=== PATIENT | female | born 1945 | race Caucasian/White ===

== ENCOUNTER 2017-01-02 15:06 | Inpatient (IN) | payer OTHER ==
[~2017-01-02] VITALS: Ht 160 cm; Wt 69.9 kg
[~2017-01-02 15:06] MED LIST: ALBU1AER9 INH; ASPI325T45 PO; CITA10TA4 PO; DIGO0.122 PO; HYDR-4079 PO; LORA-741 PO; METO-157 PO; ONDA8TAB12 PO; TRIA0.1C20 TD; ZNTT/150 PO
[2017-01-02 15:52] LABS: BASO % 0.3 %; BASO ABS # 0.02 K/uL (0-0.2); COMPLETE YES; EOS % 8.9 %; HEMATOCRIT 36.2 % (37-47); IG% 0.1 %; LYMPH % 25.4 %; LYMPH ABS # 1.86 K/uL (1.2-3.4); MEAN CELL VOLUME 91.9 fL (80-100); MEAN CORPUSCULAR HEMOGLOBIN 29.9 pg (25-34); MEAN CORPUSCULAR HGB CONC 32.6 g/dl (32-36); MEAN PLATELET VOLUME 11.5 fL (7.4-10.4); MONO % 6.4 %; NEUT % 58.9 %; PLATELET COUNT 205 K/uL (130-400); RED BLOOD COUNT 3.94 M/uL (4.2-5.4); WHITE BLOOD COUNT 7.31 K/uL (4.8-10.8)
[2017-01-02] MEDS ORDERED: CARV6.25 PO (16:02)
[2017-01-02] MEDS ORDERED: DICL1GEL12 TOP (16:02)
[2017-01-02] MEDS ORDERED: RAMI1.25 PO (16:02)
[2017-01-02] MEDS ORDERED: VENL75CA PO (16:02)
[2017-01-02] MEDS ORDERED: TRMCR130WC TOP (16:02)
[2017-01-02] MEDS ORDERED: ALBU18002 INH (16:02)
[2017-01-02] MEDS ORDERED: HYDR-5688 PO (16:02)
[2017-01-02] MEDS ORDERED: TORS5TAB10 PO (16:02)
--- NOTE | 2017-01-02 16:03 | DIAGNOSTIC IMAGING REPORT ---
CHEST ONE VIEW PORTABLE CLINICAL HISTORY: Shortness of breath. COMPARISON STUDY: Chest radiograph May 23, 2015. FINDINGS: A prosthetic mitral valve is noted. Moderate cardiomegaly is unchanged. There is no pneumothorax or pleural effusion. Linear right basilar opacity is consistent with atelectasis. Minimal left basilar opacity favors atelectasis. IMPRESSION: 1. No acute findings. 2. Mild bibasilar opacities which favor atelectasis. 3. Stable cardiomegaly without evidence of pulmonary edema. Electronically signed by: Johnnie Alegre M.D. 01/02/2017 4:01 PM Dictated Date/Time: 01/02/2017 3:55 PM
[2017-01-02 16:10] LABS: BLOOD UREA NITROGEN 14 mg/dl (7-18); BUN/CREATININE RATIO 12.5 (10-20); CALCIUM 9.4 mg/dl (8.5-10.1); CARBON DIOXIDE 32 mmol/L (21-32); CHLORIDE 104 mmol/L (98-107); GLUCOSE 125 mg/dl (70-99); MAGNESIUM 2.3 mg/dl (1.8-2.4); POTASSIUM 4.1 mmol/L (3.5-5.1); SODIUM 139 mmol/L (136-145)
--- NOTE | 2017-01-02 16:20 | EMERGENCY ROOM VISIT NOTE ---
History Report prepared by Jose: Arlene Mcarthur Under the Supervision of: Dr. Filiberto Miller M.D. First contact with patient: 15:22 Chief Complaint: CARDIAC ASSESSMENT Stated Complaint: HEART PROBLEMS-ON GOING ISSUES History of Present Illness The patient is a 71 year old female who presents to the Emergency Room for a cardiac assessment. The patient states that for the past couple of months she has been getting short of breath and diaphoretic. These symptoms occur when she is even just doing dishes or folding laundry. She thought that her symptoms were due to the hot weather because they seem to improve when she is in the air conditioning. The patient also notes that she has had intermittent chest pain and heaviness as well and states that it often feels like someone is sitting on her chest. Her pain radiates through to the center of her back. She estimates that she gets episodes of chest heaviness and shortness of breath every day and that these episodes last for about 10 minutes. The patient was evaluated by her PCP yesterday for these symptoms. She was diagnosed with new on-set a-fib and her PCP adjusted her Carvedilol doses. He wanted her to take both pills at the same time rather than spread out through the day as she has been doing. The patient states that she has not done this yet. She had chest pain throughout the night last night and was unable to sleep. She reports nausea at this time. She received a call this morning from her help desk engineer, Dr. Ortega. He told her not to change anything about her medications and to come immediately to the ED for further evaluation. The patient denies any current chest pain or shortness of breath. She also denies fevers, chills, congestion, abdominal pain , vomiting, diarrhea, and constipation. She has been eating and drinking normally. Source of History: patient Onset: a couple of months ago Position: chest Quality: other (heaviness) Timing: intermittent Modifying Factors (Worsening): exertion (/activity) Modifying Factors (Relieving): other (air conditioning) Associated Symptoms: + chest pain, + SOB, + nausea, + back pain, No fevers, No chills, No vomiting, No abdominal pain, No diarrhea Review of Systems See HPI for pertinent positives and negatives. A total of ten systems were reviewed and were otherwise negative. 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 (4) Migraine Unspecified W/O Intractable Migraine Family History FH: cancer FH: heart disease FH: hypertension Social History Smoking Status: Never Smoker Alcohol Use: none Drug Use: none Marital Status: Housing Status: lives with family Occupation Status: retired Current/Historical Medications Scheduled Aspirin (Aspirin), 325 MG PO DAILY Carvedilol (Coreg), 6.25 MG PO BID Lorazepam (Ativan), 0.5 TAB PO BID Ramipril (Ramipril), 1.25 MG PO DAILY Ranitidine (Zantac), 150 MG PO BID Torsemide (Torsemide), 10 MG PO QAM Triamcinolone Acet (Aristocort 0.1%), 1 APPLN TOP BID Venlafaxine Hcl (Effexor Xr), 75 MG PO DAILY Scheduled PRN Albuterol Sulfate (Proair Respiclick), 2 PUFFS INH QID PRN for SOB/Wheezing Diclofenac Sodium (Topical) (Voltaren 1% Top Gel), 1 APPLN TOP BID PRN for Pain Hydrocodone/Acetaminophen 5MG/325MG ([place] 5MG/325MG), 1 TABLET PO Q6H PRN for SEVERE PAIN Metoclopramide (Reglan), 10 MG PO TID PRN for Nausea Ondansetron Hcl (Zofran), 8 MG PO TID PRN for Nausea Allergies Coded Allergies: Meclizine (Verified Allergy, Intermediate, rash, 01/02/17) Cephalosporins (Verified Allergy, Unknown, HIVES, 01/02/17) Ciprofloxacin (Verified Allergy, Unknown, fever, rash, 01/02/17) Flu Virus Vaccine (Verified Allergy, Unknown, whole body rash, 01/02/17) Iodinated Contrast Media (Verified Allergy, Unknown, fever, diaphoretic, ) Latex1 -Allergic Contact Dermititis (Verified Allergy, Unknown, skin blistering, 01/02/17) Morphine and Related (Verified Allergy, Unknown, ANAPHYLAXIS, 01/02/17) Penicillins (Verified Allergy, Unknown, hives, 01/02/17) Procaine (Verified Allergy, Unknown, localized swelling, 01/02/17) with dental procedure, per pt Promethazine (Verified Allergy, Unknown, CAUSES PT TO "BE HYPER", 01/02/17) Tetanus Toxoid (Verified Allergy, Unknown, pt states was told that she could be allergic to, 01/02/17) never had tetanus shot per pt Vancomycin (Verified Allergy, Unknown, fever, rash, 01/02/17) Sumatriptan (Verified Adverse Reaction, Unknown, 'doesnt help', 01/02/17) Physical Exam Vital Signs Date Time Temp Pulse Resp B/P (MAP) Pulse Ox O2 Delivery O2 Flow Rate FiO2 01/02/17 17:05 115 18 118/94 95 Room Air 01/02/17 15:43 98 Room Air 01/02/17 15:37 108 01/02/17 15:14 36.7 122 20 152/81 98 Room Air Physical Exam GENERAL: Awake, alert, well-appearing, in no distress HENT: Normocephalic, atraumatic. Oropharynx unremarkable. Dry mucous membranes. EYES: Normal conjunctiva. Sclera non-icteric. NECK: Supple. No nuchal rigidity. FROM. No JVD. RESPIRATORY: Clear to auscultation. CARDIAC: Regular rate, normal rhythm. Extremities warm and well perfused. Pulses equal. ABDOMEN: Soft, non-distended. No tenderness to palpation. No rebound or guarding. No masses. RECTAL: Deferred. MUSCULOSKELETAL: Chest examination reveals no tenderness. The back is symmetrical on inspection without obvious abnormality. There is no CVA tenderness to palpation. No joint edema. LOWER EXTREMITIES: Calves are equal size bilaterally and non-tender. No edema. No discoloration. Equal pulses NEURO: Normal sensorium. No sensory or motor deficits noted. SKIN: No rash or jaundice noted. Medical Decision & Procedures ER Provider Diagnostic Interpretation: Radiology results as stated below per my review and radiologist interpretation: CHEST ONE VIEW PORTABLE CLINICAL HISTORY: Shortness of breath. COMPARISON STUDY: Chest radiograph May 23, 2015. FINDINGS: A prosthetic mitral valve is noted. Moderate cardiomegaly is unchanged. There is no pneumothorax or pleural effusion. Linear right basilar opacity is consistent with atelectasis. Minimal left basilar opacity favors atelectasis. IMPRESSION: 1. No acute findings. 2. Mild bibasilar opacities which favor atelectasis. 3. Stable cardiomegaly without evidence of pulmonary edema. Electronically signed by: Johnnie Alegre M.D. 01/02/2017 4:01 PM Dictated Date/Time: 01/02/2017 3:55 PM Laboratory Results 01/02/17 15:35 Red Blood Count 3.94, Mean Corpuscular Volume 91.9, Mean Corpuscular Hemoglobin 29.9, Mean Corpuscular Hemoglobin Concent 32.6, Mean Platelet Volume 11.5, Neutrophils (%) (Auto) 58.9, Lymphocytes (%) (Auto) 25.4, Monocytes (%) (Auto) 6.4, Eosinophils (%) (Auto) 8.9, Basophils (%) (Auto) 0.3, Neutrophils # (Auto) 4.30, Lymphocytes # (Auto) 1.86, Monocytes # (Auto) 0.47, Eosinophils # (Auto) 0.65, Basophils # (Auto) 0.02 01/02/17 15:35 Test 01/02/17 15:35 White Blood Count 7.31 K/uL (4.8-10.8) Red Blood Count 3.94 M/uL (4.2-5.4) Hemoglobin 11.8 g/dL (12.0-16.0) Hematocrit 36.2 % (37-47) Mean Corpuscular Volume 91.9 fL (80-100) Mean Corpuscular Hemoglobin 29.9 pg (25-34) Mean Corpuscular Hemoglobin Concent 32.6 g/dl (32-36) Platelet Count 205 K/uL (130-400) Mean Platelet Volume 11.5 fL (7.4-10.4) Neutrophils (%) (Auto) 58.9 % Lymphocytes (%) (Auto) 25.4 % Monocytes (%) (Auto) 6.4 % Eosinophils (%) (Auto) 8.9 % Basophils (%) (Auto) 0.3 % Neutrophils # (Auto) 4.30 K/uL (1.4-6.5) Lymphocytes # (Auto) 1.86 K/uL (1.2-3.4) Monocytes # (Auto) 0.47 K/uL (0.11-0.59) Eosinophils # (Auto) 0.65 K/uL (0-0.5) Basophils # (Auto) 0.02 K/uL (0-0.2) RDW Standard Deviation 46.4 fL (36.4-46.3) RDW Coefficient of Variation 13.7 % (11.5-14.5) Immature Granulocyte % (Auto) 0.1 % Immature Granulocyte # (Auto) 0.01 K/uL (0.00-0.02) Prothrombin Time 10.5 SECONDS (9.0-12.0) Prothromb Time International Ratio 1.0 (0.9-1.1) Activated Partial Thromboplast Time 25.1 SECONDS (21.0-31.0) Partial Thromboplastin Ratio 1.0 Anion Gap 3.0 mmol/L (3-11) Est Creatinine Clear Calc Drug Dose 42.9 ml/min Estimated GFR () 57.7 Estimated GFR (Non- 49.8 BUN/Creatinine Ratio 12.5 (10-20) Calcium Level 9.4 mg/dl (8.5-10.1) Magnesium Level 2.3 mg/dl (1.8-2.4) Troponin I < 0.015 ng/ml (0-0.045) Pro-B-Type Natriuretic Peptide 816 pg/ml (0-900) Thyroid Stimulating Hormone (TSH) 2.320 uIu/ml (0.300-4.500) Laboratory results reviewed by me ECG Indication: SOB/dyspnea Rate (beats per minute): 114 Rhythm: atrial fibrillation (RVR) Findings: no acute ischemic change, other (normal axis) Comparison ECG Date: 05/24/2015 Change: New a-fib compared to 2015 ED Course 1522: The patient was evaluated in room C4. A complete history and physical exam was performed. 1649: I spoke with Dr. Loving of cardiology. We discussed the patient's case. He has already evaluated the patient and in the ED and he feels that she needs to remain in the hospital for further management. 1658: I reassessed the patient at this time. She is feeling better and resting comfortably. I discussed the results and treatment plan with the patient and her family. I answered all pertaining questions that they had. They expressed understanding and verbalized agreement. 1703: I spoke with Dr. Prather. We discussed the patient's case. The patient will be evaluated by the [facility] for further management. Medical Decision I reviewed the patient's past medical history, medications, and the nursing notes as described above. Differential diagnoses includes new onset a-fib, worsening CHF, electrolyte abnormality, dehydration, ACS. Patient with complicated pmhx of CHF, AVR presents to ED with persistent SOB, worse with exertion and lying supine per HPI. Arrives to ED fatigued appearing but in NAD and AFVSS. Dry MM on exam. EKG with afib with rate to 110s. No signs of acute ischemia. Afib new compared to prior EKG although per record has had afib in the past. Trop negative and BNP unremarkable. CXR with stable cardiomegaly. Labs otherwise unremarkable. D/w Dr. Loving, cardiology, who d/w patient's help desk engineer, Dr. Ortega who recommends admission for further management and recs to continue patient's carvedilol and begin heparin gtt. Plan communicated to medicine hospitalist who admitted patient to their service. Medication Reconcilliation Current Medication List: was personally reviewed by me Blood Pressure Screening Patient's blood pressure: Elevated blood pressure Blood pressure disposition: Elevated BP felt to be situational Consults Time Called: 1649 Consulting Physician: Dr. Loving Returned Call: [address] Loving of cardiology. We discussed the patient's case. He has already evaluated the patient and in the ED and he feels that she needs to remain in the hospital for further management. Additional Consults: Time Called: 1701 Consulted Physician: Dr. Prather Returned Call: 1703 Additional Comments: I spoke with Dr. Prather. We discussed the patient's case. The patient will be evaluated by the [facility] for further management. Impression Primary Impression: Atrial fibrillation Scribe Attestation The scribe's documentation has been prepared under my direction and personally reviewed by me in its entirety. I confirm that the note above accurately reflects all work, treatment, procedures, and medical decision making performed by me. Departure Information Dispostion Being Evaluated By Hospitalist Referrals Tank Bermudez M.D. (PCP) Patient Instructions My [facility] Problem Qualifiers Primary Impression: Atrial fibrillation Atrial fibrillation type: unspecified Qualified Codes: I48.91 - Unspecified atrial fibrillation
[2017-01-02] MEDS ORDERED: HEPARIN 25000 UNIT/500 ML D5W ONE (18:01)
--- NOTE | 2017-01-02 18:08 | History and Physical ---
History & Physical Date & Time of Service: Jan 02, 2017 at 17:55 Chief Complaint: Heart Problems-On Going Issues Primary Care Physician: Tank Bermudez M.D. History of Present Illness Source: patient, family 71 year old female with history of CHF, Diastolic type, s/p Mitral Valve Repair, and other problems noted below presenting with new onset atrial fibrillation. Patient follows with Dr. Bermudez for Primary Care and Dr. Ortega for Cardiology. She was seen at the PCP office yesterday for routine follow up and patient was reporting episodes of weakness, lightheadedness and diaphoresis. EKG showed new onset Atrial Fibrillation, thus Carvedilol was increased and patient was maintained on Aspirin. This morning, patient was advised by Dr. Ortega to proceed o the ER for further evaluation. Patient was received with HR 122 and BP 152/81. EKG showing atrial fibrillation. On exam, patient was seen sitting up in bed, comfortable. Denies active chest pain, dyspnea, palpitations, dizziness, nausea. She declined to answer further ROS questions as she said she is tired and has already answered most of my questions already and it should be on her chart. Family History FH: cancer FH: heart disease FH: hypertension Social History Smoking Status: Never Smoker Alcohol Use: none Drug Use: none Marital Status: Housing status: lives with family Occupational Status: retired Multi-Drug Resistant Organisms History of MDRO: No Allergies Coded Allergies: Meclizine (Verified Allergy, Intermediate, rash, 01/02/17) Cephalosporins (Verified Allergy, Unknown, HIVES, 01/02/17) Ciprofloxacin (Verified Allergy, Unknown, fever, rash, 01/02/17) Flu Virus Vaccine (Verified Allergy, Unknown, whole body rash, 01/02/17) Iodinated Contrast Media (Verified Allergy, Unknown, fever, diaphoretic, ) Latex1 -Allergic Contact Dermititis (Verified Allergy, Unknown, skin blistering, 01/02/17) Morphine and Related (Verified Allergy, Unknown, ANAPHYLAXIS, 01/02/17) Penicillins (Verified Allergy, Unknown, hives, 01/02/17) Procaine (Verified Allergy, Unknown, localized swelling, 01/02/17) with dental procedure, per pt Promethazine (Verified Allergy, Unknown, CAUSES PT TO "BE HYPER", 01/02/17) Tetanus Toxoid (Verified Allergy, Unknown, pt states was told that she could be allergic to, 01/02/17) never had tetanus shot per pt Vancomycin (Verified Allergy, Unknown, fever, rash, 01/02/17) Sumatriptan (Verified Adverse Reaction, Unknown, 'doesnt help', 01/02/17) Home Medications Scheduled Aspirin (Aspirin), 325 MG PO DAILY Carvedilol (Coreg), 6.25 MG PO BID Lorazepam (Ativan), 0.5 TAB PO BID Ramipril (Ramipril), 1.25 MG PO DAILY Ranitidine (Zantac), 150 MG PO BID Torsemide (Torsemide), 10 MG PO QAM Triamcinolone Acet (Aristocort 0.1%), 1 APPLN TOP BID Venlafaxine Hcl (Effexor Xr), 75 MG PO DAILY Scheduled PRN Albuterol Sulfate (Proair Respiclick), 2 PUFFS INH QID PRN for SOB/Wheezing Diclofenac Sodium (Topical) (Voltaren 1% Top Gel), 1 APPLN TOP BID PRN for Pain Hydrocodone/Acetaminophen 5MG/325MG (Campbell 5MG/325MG), 1 TABLET PO Q6H PRN for SEVERE PAIN Metoclopramide (Reglan), 10 MG PO TID PRN for Nausea Ondansetron Hcl (Zofran), 8 MG PO TID PRN for Nausea Review of Systems Constitutional- no fever; no weight loss Eyes- no acute visual changes Pulmonary- no cough, no wheezing, no shortness of breath Cardiac- (+) as noted above GI- no nausea, no vomiting She declined to answer further ROS questions as she said she is tired and has already answered most of my questions already and it should be on her chart. Physical Exam Vital Signs Date Time Temp Pulse Resp B/P (MAP) Pulse Ox O2 Delivery O2 Flow Rate FiO2 01/02/17 17:05 115 18 118/94 95 Room Air 01/02/17 15:43 98 Room Air 01/02/17 15:37 108 01/02/17 15:14 36.7 122 20 152/81 98 Room Air General Appearance: WD/WN, no apparent distress Head: normocephalic, atraumatic Eyes: normal inspection, EOMI, sclerae normal ENT: normal ENT inspection, hearing grossly normal Neck: supple, no JVD Respiratory/Chest: chest non-tender, lungs clear, normal breath sounds, no respiratory distress, no accessory muscle use Cardiovascular: no edema, no JVD, no murmur, + irregularly irregular Abdomen/GI: normal bowel sounds, non tender, soft Extremities/Musculoskelatal: no calf tenderness, no pedal edema Neurologic/Psych: electric golf cart repairer II-XII nml as tested, no motor/sensory deficits, alert, normal mood/affect, normal reflexes, oriented x 3 Skin: normal color, warm/dry, no rash Lymphatic: no adenopathy Diagnostics Laboratory Results Results Past 24 Hours Test 01/02/17 15:35 Range/Units White Blood Count 7.31 4.8-10.8 K/uL Red Blood Count 3.94 4.2-5.4 M/uL Hemoglobin 11.8 12.0-16.0 g/dL Hematocrit 36.2 37-47 % Mean Corpuscular Volume 91.9 80-100 fL Mean Corpuscular Hemoglobin 29.9 25-34 pg Mean Corpuscular Hemoglobin Concent 32.6 32-36 g/dl Platelet Count 205 130-400 K/uL Mean Platelet Volume 11.5 7.4-10.4 fL Neutrophils (%) (Auto) 58.9 % Lymphocytes (%) (Auto) 25.4 % Monocytes (%) (Auto) 6.4 % Eosinophils (%) (Auto) 8.9 % Basophils (%) (Auto) 0.3 % Neutrophils # (Auto) 4.30 1.4-6.5 K/uL Lymphocytes # (Auto) 1.86 1.2-3.4 K/uL Monocytes # (Auto) 0.47 0.11-0.59 K/uL Eosinophils # (Auto) 0.65 0-0.5 K/uL Basophils # (Auto) 0.02 0-0.2 K/uL RDW Standard Deviation 46.4 36.4-46.3 fL RDW Coefficient of Variation 13.7 11.5-14.5 % Immature Granulocyte % (Auto) 0.1 % Immature Granulocyte # (Auto) 0.01 0.00-0.02 K/uL Sodium Level 139 136-145 mmol/L Potassium Level 4.1 3.5-5.1 mmol/L Chloride Level 104 98-107 mmol/L Carbon Dioxide Level 32 21-32 mmol/L Anion Gap 3.0 3-11 mmol/L Blood Urea Nitrogen 14 7-18 mg/dl Creatinine 1.10 0.60-1.20 mg/dl Est Creatinine Clear Calc Drug Dose 42.9 ml/min Estimated GFR () 57.7 Estimated GFR (Non- 49.8 BUN/Creatinine Ratio 12.5 10-20 Random Glucose 125 70-99 mg/dl Calcium Level 9.4 8.5-10.1 mg/dl Magnesium Level 2.3 1.8-2.4 mg/dl Troponin I < 0.015 0-0.045 ng/ml Pro-B-Type Natriuretic Peptide 816 0-900 pg/ml Thyroid Stimulating Hormone (TSH) 2.320 0.300-4.500 uIu/ml Diagnostic Radiology CHEST ONE VIEW PORTABLE CLINICAL HISTORY: Shortness of breath. COMPARISON STUDY: Chest radiograph May 23, 2015. FINDINGS: A prosthetic mitral valve is noted. Moderate cardiomegaly is unchanged. There is no pneumothorax or pleural effusion. Linear right basilar opacity is consistent with atelectasis. Minimal left basilar opacity favors atelectasis. IMPRESSION: 1. No acute findings. 2. Mild bibasilar opacities which favor atelectasis. 3. Stable cardiomegaly without evidence of pulmonary edema. EKG HR 114, A fib Impression Assessment and Plan 71 year old female with history of CHF, Diastolic type, s/p Mitral Valve Repair, and other problems noted below presenting with new onset atrial fibrillation. NEW ONSET ATRIAL FIBRILLATION - history of Mitral Valve Repair, Endocarditis - hemodynamically stable - discussed with Dr. Loving - will start Carvedilol 6.25mg po BID Heparin IV drip no bolus, low dose start Coumadin 3mg po daily - echo ordered CHRONIC DIASTOLIC CHF - euvolemic - continue Torsemide HISTORY OF CVA - hold Aspirin - will be on Coumadin HISTORY OF GENERALIZED ANXIETY DISORDER - PCP started Effexor, will continue - will change Lorazepam to 0.5mg BID PRN only GERD - continue Ranitidine CHRONIC BACK PAIN/HIP PAIN - Campbell PRN DVT prophylaxis will be on heparin drip CODE STATUS full code Disposition pending lives with at home anticipate return home when medically stable VTE Prophylaxis VTE Risk Assessment Done? Y/N: Yes Risk Level: Moderate Given or contraindicated: Other Anticoagulation (Heparin IV)
[2017-01-02] MEDS ORDERED: WARFARIN SOD 3 MG TAB PO SCH (18:15)
[2017-01-02] MEDS ORDERED: ACETAMINOPHEN 325 MG TAB PO PRN (18:15)
[2017-01-02] MEDS ORDERED: HEPARIN IV LOW DOSE NO BOLUS SCH (18:30)
--- NOTE | 2017-01-02 18:42 | CARDIOLOGY CONSULTATION ---
DATE OF CONSULTATION: 01/02/2017 PRIMARY CARE PHYSICIAN: Dr. Bermudez. PRIMARY SENIOR HADOOP DEVELOPER: Dr. Ortega. 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 The patient's underlying medical problems include chronic arthritic complaints including spinal stenosis and chronic hip pain as well as underlying issues with chronic anxiety. Per discussion with physicians, patient and records, patient presented yesterday to her primary care physician's office for ongoing evaluation. She carries a history of chronic seizure disorder as well as depression in addition to above and at that time was found to have complaints as described increasing anxiety, shortness of breath, abdominal bloating. She was incidentally noted to be in atrial fibrillation and this morning has been referred due to elevated heart rate response and recurrent complaints to the ER for further evaluation. At time of examination, the patient was comfortable, but frustrated by easy fatigue and diaphoresis with exertion. She notes no unexplained fevers or infections. Notes no melena or hematochezia. Notes no bleeding difficulties. She is concerned regarding her weight gain and abdominal fullness. Notes no further review of systems, headache or visual changes. Prior chronic migraines have resolved. She does have marked difficulty with sleep, which she attributes to pain. Notes chronic pain in the left hip and back when standing which limits activities substantially. Appetite is generally good. She has been doing well with diet and oral intake. She is concerned regarding discontinuation of lorazepam as part of her chronic medication regimen. REVIEW OF SYSTEMS: As per HPI and otherwise negative. ALLERGIES: MULTIPLE AND INCLUDE MORPHINE, LATEX, PERCOCET, CEPHALOSPORINS, CIPRO, IVP CONTRAST, MECLIZINE, PENICILLIN, PHENERGAN, PROCAINE, SUMATRIPTAN, TETANUS TOXOID AND VANCOMYCIN WITH VANCOMYCIN CAUSING RED RASH AND FEVER. MEDICATIONS: Prior to hospitalization were carvedilol 3.125 mg twice per day with recent recommendations to increase it to 6.25 mg twice per day, torsemide 5 mg two tablets every day, albuterol, ProAir inhaler, ramipril 1.25 mg daily, Voltaren p.r.n. pain, oxycodone p.r.n. pain, ranitidine 750 mg p.o. daily, aspirin 325 mg per day, and Reglan p.r.n. PAST SURGICAL HISTORY: Notable for remote cholecystectomy, total hysterectomy and left hip replacement in January 2015 with chronic left hip pain. FAMILY HISTORY: Not specifically notable for cardiac disease. SOCIAL HISTORY: The patient is a nonsmoker, nondrinker. PAST MEDICAL HISTORY: As described in HPI. In addition, the patient carries a history of chronic seizure disorder attributed to septic emboli without recent recurrence, chronic gastroparesis. PHYSICAL EXAMINATION: VITAL SIGNS: Current Heart rate is 100, blood pressure is 134/74. MOUTH: Normocephalic, atraumatic. NECK: Thin. There is no distinct jugular venous distention. LUNGS: Clear with mildly diminished breath sounds. HEART: Irregularly irregular There is no S3 gallop. ABDOMEN: Soft with moderate distention. There is no specific hepatomegaly or hepatojugular reflux. EXTREMITIES: Without cyanosis or clubbing. There is trace pedal edema with intact distal pulses. NEUROLOGIC: The patient is intact. DATA: EKG reveals atrial fibrillation with elevated ventricular response, rate [address]-segment changes. LABORATORY DATA: Pending. Laboratory studies reveal sodium of 139, potassium 4.1, chloride 104, bicarbonate 32, BUN 14, creatinine is 1.1, glucose is 125, TSH is 2.3. White cell count 7.3, hemoglobin is 11.8, platelet count is 205. IMAGING: Chest x-ray reveals no overt infiltrate or edema. IMPRESSION: A 71-year-old female with prior history of mitral valve repair, generally preserved left ventricular function, remote history of past atrial fibrillation with now newly noted recurrence, possibly incited by recent stressors, pain, etc. Heart rates are elevated and patient is complaining of symptoms that are associated with both exertional dyspnea and diaphoresis as well as abdominal bloating and weight gain. No overt pulmonary edema was observed on exam or x-ray. RECOMMENDATIONS: We will initially treat after long discussion with patient with ultimate goals initial heart rate control, increasing carvedilol with 6.25 mg twice per day. Will initiate anticoagulation initially with heparin and conversion to warfarin. Echocardiogram be ordered and reviewed. Pain and anxiolytic issues will need to be addressed during hospitalization. We will continue to follow closely pending admission. JR
[2017-01-02] MEDS ORDERED: HEPARIN SOD IV PRN (19:00)
[2017-01-02] MEDS ORDERED: SODIUM CHLORIDE 0.9% IV PRN (19:00)
[2017-01-02 19:16] LABS: PROTHROMBIN TIME (PATIENT) 10.5 SECONDS (9.0-12.0)
[2017-01-02 19:17] VITALS: BP 153/133; PULSE 115; TEMP 37; O2SAT 98; Ht 160 cm; Wt 69.9 kg
[2017-01-02] MEDS: TRIAMCINOLONE ACET 0.1% CR 15 GM TUBE EXT SCH (19:23)
[2017-01-02] MEDS: HYDROCODONE/ACETAMOPHEN 5/325MG TAB PO PRN (19:24)
[2017-01-02] MEDS: CARVEDILOL 6.25 MG TAB PO SCH (19:25)
[2017-01-02] MEDS: WARFARIN SOD 3 MG TAB PO SCH (19:25)
[2017-01-02] MEDS: HEPARIN 25000 UNIT/ D5W 500 ML (PHARMACY PREPARED) IV PRN ×2 (19:27)
[2017-01-02] MEDS: RANITIDINE HCL 150 MG TAB PO SCH (20:36)
[2017-01-02] MEDS ORDERED: LORAZEPAM 0.5 MG TAB PO SCH (21:00)
[2017-01-02] MEDS ORDERED: LORAZEPAM 0.5 MG TAB PO PRN (21:00)
[2017-01-02] MEDS ORDERED: LORAZEPAM 0.5 MG TAB PO ONE (23:19)
[2017-01-02] MEDS: ONDANSETRON INJ 2 MG/ML 2 ML VIAL IV PRN (23:51)
[2017-01-03] VITALS (10 sets, daily range): BP systolic 97–159; BP diastolic 61–101; PULSE 71–109; TEMP 36.5–37; O2SAT 94–99
[2017-01-03] MEDS: HYDROCODONE/ACETAMOPHEN 5/325MG TAB PO PRN ×4 (01:49→21:20)
[2017-01-03] MEDS ORDERED: HEPARIN IV BOLUS 4,000 UNIT in SYRINGE 0 ML IV ONE ×2 (03:30→16:30)
[2017-01-03] MEDS: HEPARIN 25000 UNIT/ D5W 500 ML (PHARMACY PREPARED) IV PRN ×6 (03:33→23:52)
[2017-01-03 03:40] LABS: PARTIAL THROMBOPLASTIN RATIO 1.4
[2017-01-03 07:05] LABS: BASO % 0.4 %; BASO ABS # 0.03 K/uL (0-0.2); COMPLETE YES; EOS % 10.9 %; IG% 0.1 %; LYMPH % 31.9 %; MEAN CELL VOLUME 91.4 fL (80-100); MEAN CORPUSCULAR HEMOGLOBIN 29.1 pg (25-34); MEAN CORPUSCULAR HGB CONC 31.9 g/dl (32-36); MEAN PLATELET VOLUME 11.7 fL (7.4-10.4); MONO % 5.8 %; NEUT % 50.9 %; PLATELET COUNT 202 K/uL (130-400); RED BLOOD COUNT 4.05 M/uL (4.2-5.4); WHITE BLOOD COUNT 7.53 K/uL (4.8-10.8)
[2017-01-03 07:23] LABS: PARTIAL THROMBOPLASTIN RATIO 3.1; PROTHROMBIN TIME (PATIENT) 10.7 SECONDS (9.0-12.0)
[2017-01-03 07:41] LABS: BUN/CREATININE RATIO 13.9 (10-20); CALCIUM 9.3 mg/dl (8.5-10.1); CREATININE 0.77 mg/dl (0.60-1.20); MAGNESIUM 2.4 mg/dl (1.8-2.4); POTASSIUM 4.4 mmol/L (3.5-5.1)
[2017-01-03] MEDS: TRIAMCINOLONE ACET 0.1% CR 15 GM TUBE EXT SCH ×3 (08:24→21:00)
[2017-01-03] MEDS: LORAZEPAM 0.5 MG TAB PO SCH ×2 (08:26→21:20)
[2017-01-03] MEDS: VENLAFAXINE HCL XR 75 MG CAPXR PO SCH (08:27)
[2017-01-03] MEDS: RANITIDINE HCL 150 MG TAB PO SCH ×2 (08:27→21:20)
[2017-01-03] MEDS: CARVEDILOL 6.25 MG TAB PO SCH (08:28)
[2017-01-03] MEDS: TORSEMIDE 20 MG TAB PO SCH (08:28)
[2017-01-03] MEDS ORDERED: TORSEMIDE 20 MG TAB PO SCH (09:00)
[2017-01-03] MEDS ORDERED: ENALAPRIL MALEATE 5 MG TAB PO SCH (09:00)
--- NOTE | 2017-01-03 10:00 | ECHOCARDIOGRAM REPORT ---
*NOTICE TO RECEIVING [employer] This information is strictly Confidential and protected under [place] law. [place] law prohibits you from making any further disclosure of this information unless further disclosure is expressly permitted by the written consent of the person to whom it pertains or is authorized by law. A general authorization for the release of medical or other information is not sufficient for this purpose. Hospital accepts no responsibility if the information is made available to any other person, INCLUDING THE PATIENT. Interpretation Summary * Name: GAYLE MONTES DE OCA Study Date: 01/03/2017 06:54 AM BP: 102/69 mmHg * Patient Location: [facility] HR: 91 * : 1945 (M/d/yyyy) Gender: Female Height: 63 in * Age: 71 yrs Ethnicity: [place] Weight: 155 lb * Ordering Physician: Stephen Msoher * Referring Physician: Eduardo Ortega D.O. * Performed By: Sandra Solis RDCS * * Reason For Study: Atrial fibrillation * BSA: 1.7 m2 * -- Conclusions -- * Normal LV chamber size and wall thickness. * Normal LV systolic function, EF 55-60%. * No segmental left ventricular wall motion abnormalities are noted. * Aortic valve sclerosis mild, without significant aortic valvular stenosis. * There is no mitral regurgitation noted. * There is no mitral valve stenosis. * Prior mitral valve repair. * An annuloplasty ring is noted in the mitral position. * Mild left atrial enlargement. Procedure Details * A complete two-dimensional transthoracic echocardiogram was performed (2D, M-mode, Doppler and color flow Doppler). * The study was technically limited. * The study was technically difficult. * There were technical limitations due to patient'spoor positioning * Patient refused Definity due to previous allergic reaction. Left Ventricle * The left ventricle is normal in size. * There is normal left ventricular wall thickness. * Ejection Fraction = 55-60%. * Left ventricular systolic function is normal. * No segmental left ventricular wall motion abnormalities are noted. * The left ventricular wall motion is normal. Right Ventricle * The right ventricular cavity size is normal (basal dimension <4.2 cm in right ventricular apical 4-chamber view). * The right ventricular systolic function is normal as assessed by tricuspid annular plane systolic excursion (TAPSE) (normal >1.5 cm). Atria * The left atrium is mildly dilated. * Right atrial size is normal. * No ASD detected; PFO is not assessed. Mitral Valve * There is no mitral valve stenosis. * There is no mitral regurgitation noted. * Prior mitral valve repair. * An annuloplasty ring is noted in the mitral position. Tricuspid Valve * The tricuspid valve is normal in structure and function. Aortic Valve * The aortic valve is trileaflet. * Aortic valve sclerosis mild, without significant aortic valvular stenosis. * There is no significant aortic regurgitation. Pulmonic Valve * The pulmonary valve is not well seen, but the Doppler examination is normal without significant regurgitation or stenosis. Great Vessels * The aortic root and proximal ascending aorta are normal sized. Pericardium/Pleural * There is no pericardial effusion. MMode 2D Measurements and Calculations IVSd 0.54 cm LVIDd 3.4 cm LVIDs 2.0 cm LVPWd 1.2 cm IVS/LVPW 0.46 FS 41.1 % EDV(Teich) 47.7 ml ESV(Teich) 12.8 ml EF(Teich) 73.1 % EDV(cubed) 39.6 ml ESV(cubed) 8.1 ml EF(cubed) 79.6 % LV mass(C)d 79.9 grams LV mass(C)dI 46.1 grams/m\S\2 SV(Teich) 34.8 ml SI(Teich) 20.1 ml/m\S\2 SV(cubed) 31.5 ml SI(cubed) 18.1 ml/m\S\2 Ao root diam 3.4 cm Ao root area 9.2 cm\S\2 ACS 2.2 cm LA dimension 2.4 cm asc Aorta Diam 3.1 cm LA/Ao 0.70 LVOT diam 2.0 cm LVOT area 3.3 cm\S\2 LVAd ap2 14.5 cm\S\2 LVLd ap2 5.5 cm EDV(MOD-sp2) 31.1 ml EDV(sp2-el) 32.3 ml LVAs ap2 7.8 cm\S\2 LVLs ap2 4.7 cm ESV(MOD-sp2) 10.5 ml ESV(sp2-el) 10.9 ml EF(MOD-sp2) 66.1 % EF(sp2-el) 66.1 % SV(MOD-sp2) 20.6 ml SI(MOD-sp2) 11.9 ml/m\S\2 SV(sp2-el) 21.3 ml SI(sp2-el) 12.3 ml/m\S\2 Doppler Measurements and Calculations MV E max elizabeth 177.3 cm/sec MV dec time 0.34 sec LV V1 max PG 2.1 mmHg LV V1 max 72.3 cm/sec PA V2 max 68.8 cm/sec PA max PG 1.9 mmHg PA acc slope 265.4 cm/sec\S\2 PA acc time 0.14 sec PI max elizabeth 202.6 cm/sec PI max PG 16.4 mmHg PI dec slope 178.8 cm/sec\S\2 PI P1/2t 331.9 msec PA pr(Accel) 14.0 mmHg
--- NOTE | 2017-01-03 11:50 | PROGRESS NOTE ---
DATE: 01/03/2017 The patient seen and examined. Chart, medications, telemetry reviewed. SUBJECTIVE: The patient feels improved this morning. Heart rate is slower. Notes no dizziness or lightheadedness, is concerned regarding anxiety at night. Notes no chest pains, tachypalpitations, orthopnea. Notes no worsening edema. Abdominal bloating feels improved though weight is unchanged. Does note she has been urinating frequently since admission. She was begun on anticoagulation with IV heparin and Coumadin, note she would not consider pursuing subcutaneous injections. OBJECTIVE: VITAL SIGNS: Heart rate is 90-100, blood pressure is 144/84 this morning. NECK: Thin. There is no jugular venous distention. LUNGS: Clear. CARDIOVASCULAR: Irregularly irregular with less than grade 1/6 systolic murmur. ABDOMEN: Soft, nontender. EXTREMITIES: Free of edema. DATA: Echocardiogram reveals preserved LV systolic function, EF 55-60%. There is evidence of prior mitral valve repair with annuloplasty ring. Left atrium is upper limits of normal in size and mildly dilated. Right atrium and right ventricle normal in size. LABORATORY DATA: PTT is 81. Sodium is 140, potassium is 4.4, chloride is 106, bicarb is 30, BUN is 11, creatinine 0.77, hemoglobin is 11.8. IMPRESSION: A 71-year-old female with prior history of mitral valve repair, presented with newly noted atrial fibrillation with rapid ventricular response. PLAN: Increase carvedilol to 12.5 mg twice per day. With notable history of bradycardia prior to initiation of atrial fibrillation, watch for signs and symptoms of tachybrady syndrome with bradycardia. Should be anticoagulated with IV heparin to warfarin. We will follow patient in the hospital.
[2017-01-03] MEDS: WARFARIN SOD 3 MG TAB PO SCH (15:23)
[2017-01-03 15:48] LABS: PARTIAL THROMBOPLASTIN RATIO 1.4
[2017-01-03] MEDS: CARVEDILOL 12.5 MG TAB PO SCH ×2 (16:50→22:16)
[2017-01-03] MEDS: ONDANSETRON INJ 2 MG/ML 2 ML VIAL IV PRN (17:28)
--- NOTE | 2017-01-03 18:52 | Progress Note ---
Medicine Progress Note Date & Time of Visit: Jan 03, 2017 at 18:45. Subjective seen resting in bedside chair comfortable states she feels improved denies chest pain, dyspnea, palpitations, dizziness no bleeding no other symptoms Objective Last 8 Hrs Date Time Temp Pulse Resp B/P (MAP) Pulse Ox O2 Delivery O2 Flow Rate FiO2 01/03/17 16:47 106 97/61 (73) 01/03/17 16:00 94 Room Air 01/03/17 15:59 36.9 107 18 122/80 (94) 94 Room Air 01/03/17 12:12 Room Air 01/03/17 11:27 36.7 80 18 106/73 (84) 95 Room Air Physical Exam: General- oriented x 3, not in distress, speaks in sentences with no effort Eyes- EOMI, anicteric Neck- supple, no JVD Lungs- clear breath sounds bilaterally Heart- normal rate, irregularly irregular rhythm Abdomen- normal bowel sounds, soft, nontender Extremities- no pretibial edema, no calf tenderness Neuro- alert, oriented x 3; no gross focal deficits Skin- warm & dry Laboratory Results: Last 24 Hours Test 01/03/17 01:43 01/03/17 06:45 01/03/17 15:19 Activated Partial Thromboplast Time 36.2 SECONDS 81.4 SECONDS 35.6 SECONDS Partial Thromboplastin Ratio 1.4 3.1 1.4 White Blood Count 7.53 K/uL Red Blood Count 4.05 M/uL Hemoglobin 11.8 g/dL Hematocrit 37.0 % Mean Corpuscular Volume 91.4 fL Mean Corpuscular Hemoglobin 29.1 pg Mean Corpuscular Hemoglobin Concent 31.9 g/dl Platelet Count 202 K/uL Mean Platelet Volume 11.7 fL Neutrophils (%) (Auto) 50.9 % Lymphocytes (%) (Auto) 31.9 % Monocytes (%) (Auto) 5.8 % Eosinophils (%) (Auto) 10.9 % Basophils (%) (Auto) 0.4 % Neutrophils # (Auto) 3.83 K/uL Lymphocytes # (Auto) 2.40 K/uL Monocytes # (Auto) 0.44 K/uL Eosinophils # (Auto) 0.82 K/uL Basophils # (Auto) 0.03 K/uL RDW Standard Deviation 46.0 fL RDW Coefficient of Variation 13.8 % Immature Granulocyte % (Auto) 0.1 % Immature Granulocyte # (Auto) 0.01 K/uL Prothrombin Time 10.7 SECONDS Prothromb Time International Ratio 1.0 Sodium Level 140 mmol/L Potassium Level 4.4 mmol/L Chloride Level 106 mmol/L Carbon Dioxide Level 30 mmol/L Anion Gap 4.0 mmol/L Blood Urea Nitrogen 11 mg/dl Creatinine 0.77 mg/dl Est Creatinine Clear Calc Drug Dose 61.5 ml/min Estimated GFR () 88.8 Estimated GFR (Non- 76.6 BUN/Creatinine Ratio 13.9 Random Glucose 96 mg/dl Calcium Level 9.3 mg/dl Magnesium Level 2.4 mg/dl Assessment & Plan 71 year old female with history of CHF, Diastolic type, s/p Mitral Valve Repair, and other problems noted below presenting with new onset atrial fibrillation. NEW ONSET ATRIAL FIBRILLATION - history of Mitral Valve Repair, Endocarditis - increased Carvedilol for further rate control on heparin + coumadin - appreciate Dr. Loving's input CHRONIC DIASTOLIC CHF - euvolemic - continue Torsemide HISTORY OF CVA - hold Aspirin - on Coumadin HISTORY OF GENERALIZED ANXIETY DISORDER - PCP started Effexor, will continue - Lorazepam to 0.5mg BID PRN only patient agreeable with plan GERD - continue Ranitidine CHRONIC BACK PAIN/HIP PAIN - [place] PRN DVT prophylaxis heparin drip + coumadin CODE STATUS full code Disposition pending lives with at home anticipate return home when medically stable, INR 2-3 Current Inpatient Medications: Current Inpatient Medications Medications (Trade) Dose Ordered Sig/Ray Route Start Time Stop Time Status Last Admin Dose Admin Acetaminophen/ Hydrocodone Bitart ([place] 5/325 Tab) 1 tab Q6H PRN PO 01/02/17 18:00 01/16/17 17:59 01/03/17 15:22 1 TAB Ranitidine HCl (zANTac TAB) 150 mg BID PO 01/02/17 21:00 02/01/17 20:59 01/03/17 08:27 150 MG Triamcinolone Acetonide (Kenalog 0.1% Cream) 1 appln BID EXT 01/02/17 21:00 02/01/17 20:59 01/03/17 08:24 1 APPLN Venlafaxine HCl (effeXOR EXTENDED REL CAP) 75 mg DAILY PO 01/03/17 09:00 02/02/17 08:59 01/03/17 08:27 75 MG Enalapril Maleate (Vasotec Tab) 5 mg DAILY PO 01/03/17 09:00 02/02/17 08:59 Future Hold 01/03/17 08:27 5 MG Warfarin Sodium (Coumadin Tab) 3 mg DAILY@16 PO 01/02/17 20:00 02/01/17 19:59 01/03/17 15:23 3 MG Acetaminophen (Tylenol Tab) 650 mg Q4H PRN PO 01/02/17 18:15 02/01/17 18:14 Ondansetron HCl (Zofran Inj) 4 mg Q6H PRN IV 01/02/17 18:15 02/01/17 18:14 01/03/17 17:28 4 MG Torsemide (Demadex Tab) 10 mg QAM PO 01/03/17 09:00 02/02/17 08:59 01/03/17 08:28 10 MG Heparin Sodium (Porcine) 00145 unit/Dextrose 500 ml @ 16 mls/hr Q24H PRN IV 01/02/17 19:00 02/01/17 18:59 01/03/17 16:44 16 MLS/HR Lorazepam (Ativan Tab) 0.5 mg BID PO 01/03/17 09:00 02/02/17 08:59 01/03/17 08:26 0.5 MG Carvedilol (Coreg Tab) 12.5 mg BID17 PO 01/03/17 17:00 02/01/17 20:59
[2017-01-04 00:14] VITALS: BP 110/74; PULSE 102; TEMP 37.1; O2SAT 95
[2017-01-04 04:00] VITALS: BP 102/60; PULSE 86; TEMP 37; O2SAT 96
[2017-01-04] MEDS: HYDROCODONE/ACETAMOPHEN 5/325MG TAB PO PRN (04:05)
[2017-01-04 06:39] LABS: BASO % 0.7 %; BASO ABS # 0.04 K/uL (0-0.2); COMPLETE YES; EOS % 8.1 %; HEMATOCRIT 34.9 % (37-47); IG% 0.2 %; LYMPH % 25.3 %; MEAN CELL VOLUME 91.6 fL (80-100); MEAN CORPUSCULAR HEMOGLOBIN 29.4 pg (25-34); MEAN CORPUSCULAR HGB CONC 32.1 g/dl (32-36); MONO % 9.3 %; NEUT % 56.4 %; PLATELET COUNT 174 K/uL (130-400); RED BLOOD COUNT 3.81 M/uL (4.2-5.4); WHITE BLOOD COUNT 5.92 K/uL (4.8-10.8)
[2017-01-04 06:52] LABS: INR 1.1 (0.9-1.1); PARTIAL THROMBOPLASTIN RATIO 1.7; PROTHROMBIN TIME (PATIENT) 11.4 SECONDS (9.0-12.0)
[2017-01-04 07:06] LABS: BUN/CREATININE RATIO 13.3 (10-20); CALCIUM 8.8 mg/dl (8.5-10.1); CREATININE 0.86 mg/dl (0.60-1.20); MAGNESIUM 2.2 mg/dl (1.8-2.4); POTASSIUM 4.1 mmol/L (3.5-5.1)
[2017-01-04 07:19] VITALS: BP 107/68; PULSE 107; TEMP 37; O2SAT 94
[2017-01-04] MEDS ORDERED: HEPARIN IV BOLUS 2,000 UNIT in SYRINGE 0 ML IV ONE (07:45)
[2017-01-04] MEDS: VENLAFAXINE HCL XR 75 MG CAPXR PO SCH (07:59)
[2017-01-04] MEDS: RANITIDINE HCL 150 MG TAB PO SCH (07:59)
[2017-01-04] MEDS: TORSEMIDE 20 MG TAB PO SCH (08:00)
[2017-01-04] MEDS: LORAZEPAM 0.5 MG TAB PO SCH (08:00)
[2017-01-04] MEDS: CARVEDILOL 12.5 MG TAB PO SCH (08:00)
[2017-01-04] MEDS: TRIAMCINOLONE ACET 0.1% CR 15 GM TUBE EXT SCH (08:01)
--- NOTE | 2017-01-04 10:49 | CARDIOLOGY PROGRESS NOTE ---
DATE: 01/04/2017 DATE: 01/04/2017 The patient seen and examined. Chart, medications, telemetry reviewed. SUBJECTIVE: The patient notes marked anxiety and notes she can not spend another night in the hospital. Notes no cardiac complaints; however, heart rates are trending lower. Notes no dizziness, lightheadedness. Notes no chest pains. Notes no bleeding difficulties. Does not wish to continue IV heparin any longer. OBJECTIVE: VITAL SIGNS: Heart rate is 90, blood pressure 107/68. NECK: Thin. There is no jugular venous distention. LUNGS: Clear. CARDIOVASCULAR EXAMINATION: Irregularly irregular. There is no S3 gallop. There is a grade 1/6 systolic murmur. ABDOMEN: Soft, nontender. EXTREMITIES: Without cyanosis or clubbing. There is no peripheral edema, abdominal bloating sensation is less. LABORATORY STUDIES: White cell count 5.9, hemoglobin is 11.2, INR is 1.1. Sodium is 137, potassium is 4.1, chloride is 102, bicarb is 30, BUN is 11, creatinine 0.86. I's and O's reflect approximately 2 pound weight loss since admission. IMPRESSION: A 71-year-old female with issues as follows: 1. Atrial fibrillation with rapid ventricular response. 2. History of prior mitral valve repair. 3. Chronic anxiety. RECOMMENDATIONS: Will continue current dosing of carvedilol increased to current dosing of 12.5 mg twice per day. Ramipril as patient's outpatient medication has been discontinued. Notes substitution in the hospital was enalapril 5 mg per day. Would discontinue that on discharge, continue current dosing of torsemide. I have discussed anticoagulation and benefits of maintaining anticoagulation either with IV heparin and subcutaneous Lovenox in detail. She does not wish to continue either. Wishes to continue only warfarin with outpatient titration. Noting potential risks of doing so patient will need arrangements to be seen by coag clinic and given rate control and initiation of anticoagulation will likely be able to be discharged home with clinical improvement since admission including reduced abdominal bloating and signs of mild fluid retention.
--- NOTE | 2017-01-04 11:39 | Progress Note ---
Medicine Progress Note Date & Time of Visit: Jan 04, 2017 at 11:32. Subjective patient seen resting in bed, comfortable states she wants to go home today feels much better denies dizziness, palpitations, chest pain, dyspnea no bleeding states she is ready and would like to be discharged today Objective Last 8 Hrs Date Time Temp Pulse Resp B/P (MAP) Pulse Ox O2 Delivery O2 Flow Rate FiO2 01/04/17 08:00 Room Air 01/04/17 07:19 37.0 107 18 107/68 (81) 94 Room Air Free Flow/[place] 01/04/17 04:00 Room Air 01/04/17 04:00 37.0 86 20 102/60 (74) 96 Room Air Physical Exam: General- oriented x 3, not in distress, speaks in sentences with no effort Eyes- anicteric Neck- supple, no JVD Lungs- clear breath sounds bilaterally, no rales/wheezing Heart- normal rate, irregularly irregular rhythm Abdomen- normal bowel sounds, soft, nontender Extremities- no pretibial edema, no calf tenderness Neuro- alert, oriented x 3; no gross focal deficits Skin- warm & dry Laboratory Results: Last 24 Hours Test 01/03/17 15:19 01/03/17 23:10 01/04/17 06:12 Activated Partial Thromboplast Time 35.6 SECONDS 53.0 SECONDS 44.3 SECONDS Partial Thromboplastin Ratio 1.4 2.0 1.7 White Blood Count 5.92 K/uL Red Blood Count 3.81 M/uL Hemoglobin 11.2 g/dL Hematocrit 34.9 % Mean Corpuscular Volume 91.6 fL Mean Corpuscular Hemoglobin 29.4 pg Mean Corpuscular Hemoglobin Concent 32.1 g/dl Platelet Count 174 K/uL Mean Platelet Volume 12.0 fL Neutrophils (%) (Auto) 56.4 % Lymphocytes (%) (Auto) 25.3 % Monocytes (%) (Auto) 9.3 % Eosinophils (%) (Auto) 8.1 % Basophils (%) (Auto) 0.7 % Neutrophils # (Auto) 3.34 K/uL Lymphocytes # (Auto) 1.50 K/uL Monocytes # (Auto) 0.55 K/uL Eosinophils # (Auto) 0.48 K/uL Basophils # (Auto) 0.04 K/uL RDW Standard Deviation 46.6 fL RDW Coefficient of Variation 13.9 % Immature Granulocyte % (Auto) 0.2 % Immature Granulocyte # (Auto) 0.01 K/uL Prothrombin Time 11.4 SECONDS Prothromb Time International Ratio 1.1 Sodium Level 137 mmol/L Potassium Level 4.1 mmol/L Chloride Level 102 mmol/L Carbon Dioxide Level 30 mmol/L Anion Gap 5.0 mmol/L Blood Urea Nitrogen 11 mg/dl Creatinine 0.86 mg/dl Est Creatinine Clear Calc Drug Dose 54.6 ml/min Estimated GFR () 77.7 Estimated GFR (Non- 67.0 BUN/Creatinine Ratio 13.3 Random Glucose 95 mg/dl Calcium Level 8.8 mg/dl Magnesium Level 2.2 mg/dl Assessment & Plan 71 year old female with history of CHF, Diastolic type, s/p Mitral Valve Repair, and other problems noted below presenting with new onset atrial fibrillation. NEW ONSET ATRIAL FIBRILLATION - history of Mitral Valve Repair, Endocarditis - increased Carvedilol for further rate control, heart rate improved started on heparin + coumadin - evaluated by Dr. Loving patient would like to be discharged, even with subtherapeutic INR, aware of the high risk of stroke - discharge plan: Carvedilol 12.5mg po BID Warfarin 6mg po for 01/04/17 patient signed out to [facility] who will be calling patient today for further instructions - discussed at length with patient and her , including bleeding precautions all questions answered they are agreeable and comfortable with plan of care CHRONIC DIASTOLIC CHF - euvolemic - continue Torsemide HISTORY OF CVA - hold Aspirin - now on Coumadin HISTORY OF GENERALIZED ANXIETY DISORDER - PCP started Effexor continued as inpatient patient reports headache with Effexor ,declines to continue it - Lorazepam 0.5mg BID PRN only anxiety under control, decline Psych eval advised to ff up with PCP this week GERD - continue Ranitidine CHRONIC BACK PAIN/HIP PAIN - [place] PRN DVT prophylaxis heparin drip + coumadin CODE STATUS full code Disposition d/c home [facility]madin Clinic to call patient with ff up/instructions later today ff up with PCP in 3-5 days ff up with [employer] in 1-2 weeks Current Inpatient Medications: Current Inpatient Medications Medications (Trade) Dose Ordered Sig/Ray Route Start Time Stop Time Status Last Admin Dose Admin Acetaminophen/ Hydrocodone Bitart ([place] 5/325 Tab) 1 tab Q6H PRN PO 01/02/17 18:00 01/16/17 17:59 01/04/17 04:05 1 TAB Ranitidine HCl (zANTac TAB) 150 mg BID PO 01/02/17 21:00 02/01/17 20:59 01/04/17 07:59 150 MG Triamcinolone Acetonide (Kenalog 0.1% Cream) 1 appln BID EXT 01/02/17 21:00 02/01/17 20:59 01/02/17 19:23 1 APPLN Venlafaxine HCl (effeXOR EXTENDED REL CAP) 75 mg DAILY PO 01/03/17 09:00 02/02/17 08:59 01/04/17 07:59 75 MG Enalapril Maleate (Vasotec Tab) 5 mg DAILY PO 01/03/17 09:00 02/02/17 08:59 Future Hold 01/03/17 08:27 5 MG Acetaminophen (Tylenol Tab) 650 mg Q4H PRN PO 01/02/17 18:15 02/01/17 18:14 Ondansetron HCl (Zofran Inj) 4 mg Q6H PRN IV 01/02/17 18:15 02/01/17 18:14 01/03/17 17:28 4 MG Torsemide (Demadex Tab) 10 mg QAM PO 01/03/17 09:00 02/02/17 08:59 01/04/17 08:00 10 MG Heparin Sodium (Porcine) 49741 unit/Dextrose 500 ml @ 17 mls/hr Q24H PRN IV 01/02/17 19:00 02/01/17 18:59 01/03/17 23:52 16 MLS/HR Lorazepam (Ativan Tab) 0.5 mg BID PO 01/03/17 09:00 02/02/17 08:59 01/04/17 08:00 0.5 MG Carvedilol (Coreg Tab) 12.5 mg BID17 PO 01/03/17 17:00 02/01/17 20:59 01/04/17 08:00 12.5 MG Warfarin Sodium (Coumadin Tab) 6 mg DAILY@16 PO 01/04/17 16:00 02/03/17 15:59
[2017-01-04] MEDS ORDERED: CRG125 PO (11:45)
[2017-01-04] MEDS ORDERED: CMD2 PO (11:45)
[2017-01-04] MEDS ORDERED: LORA-741 PO (11:45)
--- NOTE | 2017-01-04 11:51 | Discharge Instructions ---
Discharge Instructions Date of Service Jan 04, 2017. Admission Reason for Admission: Atrial Fibrillation Discharge Discharge Diagnosis / Problem: Atrial Fibrillation Discharge Goals Goal(s): Diagnostic testing, Therapeutic intervention Activity Recommendations Activity Limitations: as noted below (no heavy exertion until re-evaluated by Primary Care Physician) Lifting Limitations: until after follow-up appointment Exercise/Sports Limitations: until after follow-up appointment . Instructions / Follow-Up Instructions / Follow-Up PLEASE REVIEW YOUR NEW MEDICATION LIST AND FOLLOW INSTRUCTIONS CAREFULLY. THE [facility] WILL BE CALLING YOU TODAY FOR INSTRUCTIONS REGARDING SUBSEQUENT COUMADIN DOSING AND BLOOD WORK (INR). ALWAYS TALK TO YOUR DOCTOR BEFORE STARTING ANY NEW MEDICATIONS. INFORM THE COUMADIN CLINIC IF YOU ARE TAKING NEW MEDICATIONS. BE CAREFUL TO AVOID FALLS, INJURIES. IF YOU HAVE ANY HEAD INJURY, GO TO THE ER IMMEDIATELY TO BE CHECKED. IF YOU ARE HAVING SIGNS OF BLEEDING, CALL YOUR PRIMARY CARE PHYSICIAN IMMEDIATELY. CALL YOUR PRIMARY CARE PHYSICIAN OR RETURN TO ER IMMEDIATELY IF YOU ARE HAVING RECURRENCE OF YOUR SYMPTOMS. FOLLOW UP WITH COUMADIN CLINIC ADVISED. (THEY WILL CALL YOU FOR THE APPOINTMENT). FOLLOW UP WITH DR. DANGELO ON MONDAY JANUARY 09, 2017 AT 12:45PM. FOLLOW UP WITH THE ASSISTANT DEAN OF STUDENTS IN 1-2 WEEKS. Current Hospital Diet Patient's current hospital diet: AHA Diet (Heart Healthy) Discharge Diet Recommended Diet: AHA Diet (Heart Healthy) Pending Studies Studies pending at discharge: yes List of pending studies: BLOOD WORK (INR) C/O COUMADIN CLINIC Medical Emergencies . Who to Call and When: Medical Emergencies: If at any time you feel your situation is an emergency, please call 911 immediately. . Non-Emergent Contact Non-Emergency issues call your: Primary Care Provider Call Non-Emergent contact if: you have a fever, you have any medication questions . . "Provider Documentation" section prepared by Stephen Mosher. . VTE Core Measure Inpt VTE Proph given/why not?: Unfractionated heparin SQ, Warfarin (Coumadin)
--- NOTE | 2017-01-04 11:55 | Discharge Summary ---
Discharge Summary Date of Service Jan 04, 2017. Discharge Summary Admission Date: Jan 02, 2017 at 17:43 Discharge Date: Jan 04, 2017 Discharge Disposition: Home Principal Diagnosis: NEW ONSET ATRIAL FIBRILLATION Secondary Diagnoses/Problems: PLEASE REFER TO HOSPITAL COURSE BELOW. Procedures: Interpretation Summary * Name: GAYLE MONTES DE OCA Study Date: 01/03/2017 06:54 AM BP: 102/69 mmHg * Patient Location: [facility] HR: 91 * : 1945 (M/d/yyyy) Gender: Female Height: 63 in * Age: 71 yrs Ethnicity: [place] Weight: 155 lb * Ordering Physician: Stephen Mosher * Referring Physician: Eduardo Ortega D.O. * Performed By: Sandra Solis RDCS * * Reason For Study: Atrial fibrillation * BSA: 1.7 m2 * -- Conclusions -- * Normal LV chamber size and wall thickness. * Normal LV systolic function, EF 55-60%. * No segmental left ventricular wall motion abnormalities are noted. * Aortic valve sclerosis mild, without significant aortic valvular stenosis. * There is no mitral regurgitation noted. * There is no mitral valve stenosis. * Prior mitral valve repair. * An annuloplasty ring is noted in the mitral position. * Mild left atrial enlargement. Procedure Details * A complete two-dimensional transthoracic echocardiogram was performed (2D, M-mode, Doppler and color flow Doppler). * The study was technically limited. * The study was technically difficult. * There were technical limitations due to patient'spoor positioning * Patient refused Definity due to previous allergic reaction. Left Ventricle * The left ventricle is normal in size. * There is normal left ventricular wall thickness. * Ejection Fraction = 55-60%. * Left ventricular systolic function is normal. * No segmental left ventricular wall motion abnormalities are noted. * The left ventricular wall motion is normal. Right Ventricle * The right ventricular cavity size is normal (basal dimension <4.2 cm in right ventricular apical 4-chamber view). * The right ventricular systolic function is normal as assessed by tricuspid annular plane systolic excursion (TAPSE) (normal >1.5 cm). Atria * The left atrium is mildly dilated. * Right atrial size is normal. * No ASD detected; PFO is not assessed. Mitral Valve * There is no mitral valve stenosis. * There is no mitral regurgitation noted. * Prior mitral valve repair. * An annuloplasty ring is noted in the mitral position. Tricuspid Valve * The tricuspid valve is normal in structure and function. Aortic Valve * The aortic valve is trileaflet. * Aortic valve sclerosis mild, without significant aortic valvular stenosis. * There is no significant aortic regurgitation. Pulmonic Valve * The pulmonary valve is not well seen, but the Doppler examination is normal without significant regurgitation or stenosis. Great Vessels * The aortic root and proximal ascending aorta are normal sized. Pericardium/Pleural * There is no pericardial effusion. Consultations: Electrical Installer Dr. Loving Pending Studies/Follow-Up: Please refer to hospital course below. Medication Reconciliation New Medications: Warfarin Sod (Coumadin) 2 Mg Tab 2 MG PO UD, #30 TABS 1 Refill take 3 tablets (total of 6mg) po today (january 04, 2017) at 4:00pm Carvedilol (Carvedilol) 12.5 Mg Tab 12.5 MG PO BID17 for 30 Days, #60 TAB 2 Refills Changed Medications: Lorazepam (Ativan) 0.5 Mg Tab 0.5 TAB PO BID PRN for anxiety for 7 Days, #7 TAB (Medication details modified) Continued Medications: Albuterol Sulfate (Proair Respiclick) 108 Mcg/Act Aer 2 PUFFS INH QID PRN for SOB/Wheezing Hydrocodone/Acetaminophen 5MG/325MG ([place] 5MG/325MG) Tab 1 TABLET PO Q6H PRN for SEVERE PAIN, TAB PRN PAIN Metoclopramide (Reglan) 10 Mg Tab 10 MG PO TID PRN for Nausea, TAB Ondansetron Hcl (Zofran) 8 Mg Tab 8 MG PO TID PRN for Nausea, TAB Ramipril (Ramipril) 1.25 Mg Cap 1.25 MG PO DAILY Ranitidine (Zantac) 150 Mg Tab 150 MG PO BID, TAB Torsemide (Torsemide) 5 Mg Tab 10 MG PO QAM Triamcinolone Acet (Aristocort 0.1%) 90 Appln/30 Gm Cr 1 APPLN TOP BID Discontinued Medications: Aspirin (Aspirin) 325 Mg Tab 325 MG PO DAILY Carvedilol (Coreg) 6.25 Mg Tab 6.25 MG PO BID, TAB Diclofenac Sodium (Topical) (Voltaren 1% Top Gel) 1 % Gel 1 APPLN TOP BID PRN for Pain Venlafaxine Hcl (Effexor Xr) 75 Mg Cap 75 MG PO DAILY for 30 Days, #30 CAP Admission Information HPI (per Admitting provider): 71 year old female with history of CHF, Diastolic type, s/p Mitral Valve Repair, and other problems noted below presenting with new onset atrial fibrillation. Patient follows with Dr. Dangelo for Primary Care and Dr. Ortega for Cardiology. She was seen at the PCP office yesterday for routine follow up and patient was reporting episodes of weakness, lightheadedness and diaphoresis. EKG showed new onset Atrial Fibrillation, thus Carvedilol was increased and patient was maintained on Aspirin. This morning, patient was advised by Dr. Ortega to proceed o the ER for further evaluation. Patient was received with HR 122 and BP 152/81. EKG showing atrial fibrillation. On exam, patient was seen sitting up in bed, comfortable. Denies active chest pain, dyspnea, palpitations, dizziness, nausea. She declined to answer further ROS questions as she said she is tired and has already answered most of my questions already and it should be on her chart. Physical Exam (per Admitting): General Appearance: WD/WN, no apparent distress Head: normocephalic, atraumatic Eyes: normal inspection, EOMI, sclerae normal ENT: normal ENT inspection, hearing grossly normal Neck: supple, no JVD Respiratory/Chest: chest non-tender, lungs clear, normal breath sounds, no respiratory distress, no accessory muscle use Cardiovascular: no edema, no JVD, no murmur, + irregularly irregular Abdomen/GI: normal bowel sounds, non tender, soft Extremities/Musculoskelatal: no calf tenderness, no pedal edema Neurologic/Psych: chemical pumper II-XII nml as tested, no motor/sensory deficits, alert , normal mood/affect, normal reflexes, oriented x 3 Skin: normal color, warm/dry, no rash Lymphatic: no adenopathy Hospital Course 71 year old female with history of CHF, Diastolic type, s/p Mitral Valve Repair, and other problems noted below presenting with new onset atrial fibrillation. NEW ONSET ATRIAL FIBRILLATION - history of Mitral Valve Repair, Endocarditis - increased Carvedilol for further rate control, heart rate improved started on heparin + coumadin - evaluated by Dr. Loving patient would like to be discharged, even with subtherapeutic INR, aware of the high risk of stroke - discharge plan: Carvedilol 12.5mg po BID Warfarin 6mg po for 01/04/17 patient signed out to Cou[facility] who will be calling patient today for further instructions - discussed at length with patient and her , including bleeding precautions all questions answered they are agreeable and comfortable with plan of care CHRONIC DIASTOLIC CHF - euvolemic - continue Torsemide HISTORY OF CVA - hold Aspirin - now on Coumadin GENERALIZED ANXIETY DISORDER - PCP started Effexor continued as inpatient patient reports headache with Effexor ,declines to continue it - Lorazepam 0.5mg BID PRN only anxiety under control, declines Psych eval advised to ff up with PCP this week GERD - continue Ranitidine CHRONIC BACK PAIN/HIP PAIN - [place] PRN Disposition d/c home Coumadin Clinic to call patient with ff up/instructions later today ff up with PCP in 3-5 days ff up with Electrical Installer in 1-2 weeks Total time spent on discharge = 50 minutes This includes examination of the patient, discharge planning, medication reconciliation, and communication with other providers. Discharge Instructions Discharge Instructions Date of Service Jan 04, 2017. Admission Reason for Admission: Atrial Fibrillation Discharge Discharge Diagnosis / Problem: Atrial Fibrillation Discharge Goals Goal(s): Diagnostic testing, Therapeutic intervention Activity Recommendations Activity Limitations: as noted below (no heavy exertion until re-evaluated by Primary Care Physician) Lifting Limitations: until after follow-up appointment Exercise/Sports Limitations: until after follow-up appointment . Instructions / Follow-Up Instructions / Follow-Up PLEASE REVIEW YOUR NEW MEDICATION LIST AND FOLLOW INSTRUCTIONS CAREFULLY. THE [facility] WILL BE CALLING YOU TODAY FOR INSTRUCTIONS REGARDING SUBSEQUENT COUMADIN DOSING AND BLOOD WORK (INR). ALWAYS TALK TO YOUR DOCTOR BEFORE STARTING ANY NEW MEDICATIONS. INFORM THE COUMADIN CLINIC IF YOU ARE TAKING NEW MEDICATIONS. BE CAREFUL TO AVOID FALLS, INJURIES. IF YOU HAVE ANY HEAD INJURY, GO TO THE ER IMMEDIATELY TO BE CHECKED. IF YOU ARE HAVING SIGNS OF BLEEDING, CALL YOUR PRIMARY CARE PHYSICIAN IMMEDIATELY. CALL YOUR PRIMARY CARE PHYSICIAN OR RETURN TO ER IMMEDIATELY IF YOU ARE HAVING RECURRENCE OF YOUR SYMPTOMS. FOLLOW UP WITH COUMADIN CLINIC ADVISED. (THEY WILL CALL YOU FOR THE APPOINTMENT). FOLLOW UP WITH DR. DANGELO ON MONDAY JANUARY 09, 2017 AT 12:45PM. FOLLOW UP WITH THE MECHANICAL FITTER IN 1-2 WEEKS. Current Hospital Diet Patient's current hospital diet: AHA Diet (Heart Healthy) Discharge Diet Recommended Diet: AHA Diet (Heart Healthy) Pending Studies Studies pending at discharge: yes List of pending studies: BLOOD WORK (INR) C/O COUMADIN CLINIC Medical Emergencies . Who to Call and When: Medical Emergencies: If at any time you feel your situation is an emergency, please call 911 immediately. . Non-Emergent Contact Non-Emergency issues call your: Primary Care Provider Call Non-Emergent contact if: you have a fever, you have any medication questions . . "Provider Documentation" section prepared by Stephen Mosher. . VTE Core Measure Inpt VTE Proph given/why not?: Unfractionated heparin SQ, Warfarin (Coumadin)
[2017-01-04 12:56] VITALS: BP 107/68; PULSE 107; TEMP 37; O2SAT 94
[2017-01-04] MEDS ORDERED: WARFARIN SOD 6 MG TAB PO SCH (16:00)
== END 2017-01-04 13:25 | disposition home or self-care (01) | DRG 309 ==
LOC: C.EDB 15:10 → C.2T 17:43 → ENRESERV 17:50 → C.MED 21:53
PROVIDERS: ADMIT Internal Medicine; ATTEND Internal Medicine
DX: I48.91 Unspecified atrial fibrillation (principal); I50.32 Chronic diastolic (congestive) heart failure; F41.1 Generalized anxiety disorder; G89.29 Other chronic pain; M54.9 Dorsalgia, unspecified; M25.559 Pain in unspecified hip; Z80.9 Family history of malignant neoplasm, unspecified; Z82.49 Family history of ischemic heart disease and other diseases of the circulatory system; Z90.49 Acquired absence of other specified parts of digestive tract; Z79.82 Long term (current) use of aspirin; Z79.899 Other long term (current) drug therapy; Z88.8 Allergy status to other drugs, medicaments and biological substances; Z88.3 Allergy status to other anti-infective agents; Z88.7 Allergy status to serum and vaccine; Z91.041 Radiographic dye allergy status; Z88.5 Allergy status to narcotic agent; Z91.040 Latex allergy status; Z90.710 Acquired absence of both cervix and uterus; Z86.73 Personal history of transient ischemic attack (TIA), and cerebral infarction without residual deficits

== ENCOUNTER 2022-07-20 09:16 | Inpatient (IN) ==
[2022-07-20] MEDS ORDERED: SODIUM CHLORIDE 0.9% 500 ML IV ONE (09:26)
[2022-07-20] MEDS ORDERED: METOPROLOL TARTRATE 1 MG/ML VIAL IV STA ×2 (09:26→10:07)
[2022-07-20] MEDS ORDERED: LORazepam 2 MG/1 ML VIAL IV STA (09:27)
--- NOTE | 2022-07-20 09:30 | Emergency Department Note ---
Impression & Plan Atrial fibrillation with RVR, Sepsis, Cellulitis of right leg ED Provider Note Name: GAYLE MONTES DE OCA Age: 76 Sex: F Arrives Via: Ambulance Informant: Patient, family ED Provider: Wil Somers MD Chief Complaint: Illness Impression: As per impressions above Medical Decision Making: Quite complicated 77-year-old female with history of A-fib, migraines, hypertension, anxiety has been dealing with a right leg wound infection for the last few weeks. He documents seen in the ER and left AGAINST MEDICAL ADVICE but was able to get in with wound care. Unfortunately wound has started worsening over the last day she is having increasing spreading erythema. She arrives for evaluation of worsening weakness, nausea and lack of appetite including refusing to take her meds last few days. She was febrile tachycardic and quite unwell appearing on arrival with evidence of cellulitis of the right leg. This is consistent with sepsis as well as her A-fib RVR which is likely further compounded by not having had her medications recently. She is somewhat fluid overloaded from a lung perspective thus she was given judiciously small amount of fluids including initial 500 mg liter IV fluid bolus. In addition to get her heart rate under control she was given Lopressor 5 mg IV x2 as well is some Ativan for acute anxiety which she takes regularly. In the setting of sepsis likely secondary to leg infection I discussed with pharmacy who advised ertapenem and daptomycin which was ordered. I will note heart rate did come down significantly. Mild increased work of breathing but not significantly respiratory distress. Patient is also much calmer following the Ativan. Family relates the patient had a fall about a week ago. In the setting of being on blood thinner we did attempt to get a CT image of the head as she reports hitting the back of her head. Unfortunately patient is too anxious to lay flat for a CT. I do not think that further sedation or even intubation would be indicated just to get a CT of the head on a patient that is completely neurologically intact with the understanding that we could be missing an intracranial hemorrhage but the risks of things needed to get the procedure done would outweigh the benefits at this time. Patient with many repeat evaluations throughout her stay and hospitalist were consulted for further management. I did discuss my inability get a CT scan and they are aware. Prior Medical Record and Triage/Nursing Notes reviewed by Me External chart review by me including previous discharge summaries Differentials:Infection, dehydration, metabolic abnormality, hypo/hyperglycemia , electrolyte disturbance, anemia, hypoxia, cardiac sources, intracerebral event, toxicologic, neurologic, as well as other pathologies. Vital Signs: reviewed and remarkable for tachycardia, fever Interventions: 500 mL IV fluid bolus, Lopressor 5 mg IV x2, enema IV, daptomycin IV, Ativan 0.5 mg IV. Sepsis management included IV fluid resuscitation. Volume 500 mL normal saline bolus IV. Indication concern for acute fluid overload as evidenced by chest x- ray Labs:Reviewed and remarkable for elevated troponin, elevated white blood cell count, low digoxin level amongst multiple other labs reviewed Imagin view chest x-ray interpreted by me. Bilateral pulmonary congestion mildly worsened from previous. EKG:As per my interpretation. Indication sepsis. A-fib RVR at 163 bpm and a QTc of 434. No overt ischemia. Poor baseline unable to get patient to stay still or stop shaking. When compared to an EKG of June 26, 2022 heart rate has significantly increased. Cardiac/Tele Monitoring: Cardiac Monitoring: An Order was placed for continuous cardiac monitoring. The monitor shows a rate of 120 with a afib rhythm. Consults:Hospitalist Plan: Disposition:Hospitalization. Condition: Fair History of Present Illness:76-year-old female arrives for evaluation of illness. Patient notes she had stopped taking her meds a few days ago. It is slightly unclear why this occurred. She notes that she feels very weak tired nauseous and lightheaded. Complains that she is having trouble taking a deep breath. Denies any falls, trauma, injuries. She states she is severely thirsty and wants a drink of water. She admits she is very anxious because she has not her meds in several days. Denies any specific abdominal pain. She was given Zofran ODT prior to arrival with resolution of nausea. Patient just states she feels very sick now. She been dealing with a right lower leg wound and has been on antibiotics and seeing wound care. She states this is actually helped significantly and the redness has gotten much better. She is not having any f iva. Denies any sick contacts. Denies any current chest pain, headache, neck pain, vomiting, abdominal pain, back pain, diarrhea, urinary symptoms, leg swelling beyond baseline or other concerning signs or symptoms. States she has not eaten well the last few days either because she just is not feeling well. Past History:See Below Home Medications:See Below Allergies:See Below Vitals:Blood Pressure: 125/80, Pulse 160, RR 22, T 38C, O2 98% on RA Physical Exam: GENERAL: Patient is severely anxious appearing and in moderate distress. EYES: No scleral icterus, unremarkable pupils. ENT: Mucous membranes dry, no nasal congestion. RESPIRATORY: Diffuse crackles at bases but clear at the apex moderate tachypnea CARDIOVASCULAR: Tachycardic and irregular GASTROINTESTINAL: Abdomen soft, non-tender, no peritonitis.Bowel sounds positive.No masses appreciated. EXTREMITIES: Normal motion all extremities, no cyanosis, no edema. NEUROLOGIC: Alert and oriented, no focal neurologic deficit SKIN: No rash, no jaundice, no diaphoresis. PSYCH: Severely anxious GCS: 15 ED Course: Times/Reassessments: Patient's heart rate has come down drastically with initial fluid bolus and Lopressor. Mild increase in work of breathing in no significant distress further fluids were held Critical Care: I have personally spent 35 minutes of critical care time in the direct management of this patient. Sepsis in setting of Afib RVR. This was a life/limb threatening event. This 35 minutes is in excess of all separately billable procedures. Wli Somers MD Past Med/Surg History Medical History Adjustment disorder with depressed mood Atrial fibrillation Contrast media allergy Diastolic dysfunction with chronic heart failure Gastroparesis Generalized anxiety disorder Generalized osteoarthritis GERD (gastroesophageal reflux disease) Herpes labialis IBS (irritable bowel syndrome) Intractable migraine with aura Persistent atrial fibrillation Pulmonary HTN Ventral hernia Surgical History S/P mitral valve repair Status post left hip replacement Family History Mother Breast cancer Other Diabetes Heart disease Social History Smoking Status: Never smoker Second Hand Exposure: No; Do You Dip or Chew Tobacco: No; Hx Alcohol Use: No Hx Substance Use: No Preferred Language: Nepalese Communication Ability: Effective 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 Beliefs That Will Affect Care: None marital status: Current Living Situation: Spouse Other Information That Helps Us Care for You: No Feels Safe at Home: Yes Safety Concerns: Feels Safe At This Time Assistive Devices: Cane, Denture - Upper, Denture - Lower and Glasses Allergies Allergies Allergy/AdvReac Type Severity Reaction Status Date / Time morphine Allergy Severe ANAPHYLAXIS Verified 06/03/22 02:20 Cephalosporins Allergy Intermediate HIVES Verified 07/20/22 10:44 ciprofloxacin Allergy Intermediate fever, rash Verified 06/03/22 02:20 Influenza Virus Vaccines Allergy Intermediate whole body Verified 07/20/22 21:49 rash Iodinated Contrast Media Allergy Intermediate fever, Verified 06/03/22 02:20 diaphoretic latex Allergy Intermediate skin Verified 06/03/22 02:20 blistering meclizine Allergy Intermediate rash Verified 06/03/22 02:20 Penicillins Allergy Intermediate hives Verified 07/20/22 10:44 promethazine Allergy Intermediate CAUSES PT Verified 06/03/22 02:20 TO "BE HYPER" vancomycin Allergy Intermediate fever, rash Verified 06/03/22 02:20 procaine Allergy Mild localized Verified 06/03/22 02:21 swelling tetanus toxoid, adsorbed Allergy Mild pt states Verified 06/03/22 02:20 was told that she could be allergic to Cipro Allergy Unknown fever, rash Verified 01/02/17 15:49 oxycodone [From Percocet] Allergy Hives Verified 06/03/22 02:21 pneumococcal vaccine Allergy Hives Verified 06/03/22 02:22 sumatriptan AdvReac Intermediate 'doesnt Verified 06/03/22 02:20 help' Home Meds Home Medications Medication Instructions Recorded Confirmed albuterol sulfate 90 mcg/actuation 2 puff inhalation Q6H PRN 09/01/18 07/20/22 aerosol inhaler (ProAir HFA) Shortness Of Breath Or Wheezing carvedilol 12.5 mg tablet 12.5 mg PO BID 09/01/18 07/20/22 diclofenac sodium 1 % topical gel 2 g topical BID PRN Pain 09/01/18 07/20/22 lorazepam 0.5 mg tablet 0.5 mg PO BID 09/01/18 07/20/22 triamcinolone acetonide 0.1 % 1 applic topical BID 09/01/18 07/20/22 topical cream ramipril 2.5 mg capsule 2.5 mg PO DAILY 09/02/18 07/20/22 digoxin 125 mcg (0.125 mg) tablet 125 mcg PO DAILY 04/29/22 07/20/22 hydrocodone 5 mg-acetaminophen 325 1 tab PO Q4H PRN Pain 04/29/22 07/20/22 mg tablet ondansetron HCl 8 mg tablet 8 mg PO TID PRN Nausea 04/29/22 07/20/22 warfarin 2 mg tablet (Jantoven) 6 mg PO MOWEFR@89904/29/22 07/20/22 warfarin 4 mg tablet 4 mg PO SUTUTHSA@89907/20/22 07/20/22 Results & Data (ED) Vital Signs Vital Signs - 24 hr 07/20/22 09:47 07/20/22 10:41 07/20/22 10:00 Pulse Rate 134 H 126 H Pulse Rate from SpO2 Sensor Respiratory Rate Blood Pressure 132/93 111/83 133/76 Blood Pressure Mean 95 Pulse Oximetry 07/20/22 10:00 07/20/22 10:41 07/20/22 10:41 Pulse Rate 120 H 119 H Pulse Rate from SpO2 Sensor 122 H 136 H Respiratory Rate 19 22 Blood Pressure 111/83 Blood Pressure Mean 92 Pulse Oximetry 88 L 100 07/20/22 11:01 07/20/22 11:01 07/20/22 11:10 Pulse Rate 123 H Pulse Rate from SpO2 Sensor 123 H Respiratory Rate 26 H 24 Blood Pressure 134/101 H Blood Pressure Mean 112 Pulse Oximetry 100 Laboratory Data 07/21/22 06:02 07/21/22 06:02 Lab Results 07/20/22 07/20/22 07/20/22 Range/Units 09:35 09:35 09:35 WBC 12.15 H (4.8-10.8) K/ul RBC 3.64 L (4.20-5.40) M/uL Hgb 10.6 L (12.0-16.0) g/dl Hct 33.5 L (37.0-47.0) % MCV 92.0 (80.0-100.0) fL MCH 29.1 (25.0-34.0) pg MCHC 31.6 L (32.0-36.0) g/dL RDW Std Deviation 50.8 H (36.4-46.3) fL RDW Coeff of Pauline 15.2 H (11.5-14.5) % Plt Count 192 (130-400) K/uL MPV 12.4 (9.4-12.4) fL Immature Gran % (Auto) 0.3 % Neut % (Auto) 84.4 % Lymph % (Auto) 6.1 % [place] % (Auto) 6.3 % Eos % (Auto) 2.8 % Baso % (Auto) 0.1 % Neut # (Auto) 10.26 H (1.40-6.50) K/uL Lymph # (Auto) 0.74 L (1.2-3.4) K/uL [place] # (Auto) 0.76 H (0.11-0.59) K/uL Eos # (Auto) 0.34 (0-0.50) K/uL Baso # (Auto) 0.01 (0-0.2) K/uL Immature Gran # (Auto) 0.04 (0.01-0.20) K/uL PT 18.6 H (9.0-12.0) Seconds INR 1.8 H (0.9-1.1) Sodium (136-145) mmol/L Potassium (3.5-5.1) mmol/L Chloride (98-107) mmol/L Carbon Dioxide (21-32) mmol/L Anion Gap (3-11) BUN (6-23) mg/dl Creatinine (0.6-1.2) mg/dl Est Cr Clr Drug Dosing ml/min Est GFR ( Amer) ml/min Est GFR (Non-Af Amer) ml/min BUN/Creatinine Ratio (10-20) Glucose (70-99(Fasting)) mg/dl Lactate 1.5 (0.4-2.0) mmol/L Calcium (8.5-10.1) mg/dl Magnesium (1.7-2.4) mg/dl Total Bilirubin (0.2-1.0) mg/dl Direct Bilirubin (0-0.2) mg/dl AST (13-39) U/L ALT (7-52) U/L Alkaline Phosphatase (34-104) U/L Troponin I High Sens (0-14) pg/ml Total Protein (6.0-8.3) gm/dl Albumin (3.4-5.0) gm/dl Lipase (11-82) U/L Procalcitonin (0-0.5) ng/ml Digoxin (0.8-2.0) ng/ml SARS-CoV-2 (PCR) (Negative) Influenza Type A (PCR) (Neg) Influenza Type B (PCR) (Neg) RSV (RT-PCR) (Neg) 07/20/22 07/20/22 07/20/22 Range/Units 09:35 09:35 10:05 WBC (4.8-10.8) K/ul RBC (4.20-5.40) M/uL Hgb (12.0-16.0) g/dl Hct (37.0-47.0) % MCV (80.0-100.0) fL MCH (25.0-34.0) pg MCHC (32.0-36.0) g/dL RDW Std Deviation (36.4-46.3) fL RDW Coeff of Pauline (11.5-14.5) % Plt Count (130-400) K/uL MPV (9.4-12.4) fL Immature Gran % (Auto) % Neut % (Auto) % Lymph % (Auto) % [place] % (Auto) % Eos % (Auto) % Baso % (Auto) % Neut # (Auto) (1.40-6.50) K/uL Lymph # (Auto) (1.2-3.4) K/uL [place] # (Auto) (0.11-0.59) K/uL Eos # (Auto) (0-0.50) K/uL Baso # (Auto) (0-0.2) K/uL Immature Gran # (Auto) (0.01-0.20) K/uL PT (9.0-12.0) Seconds INR (0.9-1.1) Sodium 134 L (136-145) mmol/L Potassium 4.1 (3.5-5.1) mmol/L Chloride 101 (98-107) mmol/L Carbon Dioxide 25 (21-32) mmol/L Anion Gap 8 (3-11) BUN 10 (6-23) mg/dl Creatinine 0.71 (0.6-1.2) mg/dl Est Cr Clr Drug Dosing 59.7 ml/min Est GFR ( Amer) 94.6 ml/min Est GFR (Non-Af Amer) 81.6 ml/min BUN/Creatinine Ratio 14.1 (10-20) Glucose 134 H (70-99(Fasting)) mg/dl Lactate (0.4-2.0) mmol/L Calcium 9.3 (8.5-10.1) mg/dl Magnesium 1.6 L (1.7-2.4) mg/dl Total Bilirubin 1.1 H (0.2-1.0) mg/dl Direct Bilirubin 0.3 H (0-0.2) mg/dl AST 19 (13-39) U/L ALT 11 (7-52) U/L Alkaline Phosphatase 44 (34-104) U/L Troponin I High Sens 35.9 H (0-14) pg/ml Total Protein 7.2 (6.0-8.3) gm/dl Albumin 4.1 (3.4-5.0) gm/dl Lipase 16 (11-82) U/L Procalcitonin 0.12 (0-0.5) ng/ml Digoxin (0.8-2.0) ng/ml SARS-CoV-2 (PCR) NEGATIVE (Negative) Influenza Type A (PCR) Negative (Neg) Influenza Type B (PCR) Negative (Neg) RSV (RT-PCR) Negative (Neg) 07/20/22 Range/Units 10:31 WBC (4.8-10.8) K/ul RBC (4.20-5.40) M/uL Hgb (12.0-16.0) g/dl Hct (37.0-47.0) % MCV (80.0-100.0) fL MCH (25.0-34.0) pg MCHC (32.0-36.0) g/dL RDW Std Deviation (36.4-46.3) fL RDW Coeff of Pauline (11.5-14.5) % Plt Count (130-400) K/uL MPV (9.4-12.4) fL Immature Gran % (Auto) % Neut % (Auto) % Lymph % (Auto) % [place] % (Auto) % Eos % (Auto) % Baso % (Auto) % Neut # (Auto) (1.40-6.50) K/uL Lymph # (Auto) (1.2-3.4) K/uL [place] # (Auto) (0.11-0.59) K/uL Eos # (Auto) (0-0.50) K/uL Baso # (Auto) (0-0.2) K/uL Immature Gran # (Auto) (0.01-0.20) K/uL PT (9.0-12.0) Seconds INR (0.9-1.1) Sodium (136-145) mmol/L Potassium (3.5-5.1) mmol/L Chloride (98-107) mmol/L Carbon Dioxide (21-32) mmol/L Anion Gap (3-11) BUN (6-23) mg/dl Creatinine (0.6-1.2) mg/dl Est Cr Clr Drug Dosing ml/min Est GFR ( Amer) ml/min Est GFR (Non-Af Amer) ml/min BUN/Creatinine Ratio (10-20) Glucose (70-99(Fasting)) mg/dl Lactate (0.4-2.0) mmol/L Calcium (8.5-10.1) mg/dl Magnesium (1.7-2.4) mg/dl Total Bilirubin (0.2-1.0) mg/dl Direct Bilirubin (0-0.2) mg/dl AST (13-39) U/L ALT (7-52) U/L Alkaline Phosphatase (34-104) U/L Troponin I High Sens (0-14) pg/ml Total Protein (6.0-8.3) gm/dl Albumin (3.4-5.0) gm/dl Lipase (11-82) U/L Procalcitonin (0-0.5) ng/ml Digoxin 0.4 L (0.8-2.0) ng/ml SARS-CoV-2 (PCR) (Negative) Influenza Type A (PCR) (Neg) Influenza Type B (PCR) (Neg) RSV (RT-PCR) (Neg) Administered Medications Carvedilol (Carvedilol 12.5 Mg Tab) 12.5 mg PO BID [facility] Stop: 08/19/22 20:59 Last Admin: 07/21/22 08:46 Dose: 12.5 mg Documented By: Admin: 07/20/22 20:12 Dose: 12.5 mg Documented By: ISHAN Collagenase (Collagenase Oint 30 Gm Tube) 1 appln EXT DAILY [facility] Stop: 08/19/22 15:14 Last Admin: 07/20/22 17:54 Dose: 1 appln Documented By: THONG Digoxin (Digoxin 0.125 Mg Tab) 0.125 mg PO DAILY [facility] Stop: 08/20/22 08:59 Last Admin: 07/21/22 08:46 Dose: 0.125 mg Documented By: GPF Enalapril Maleate (Enalapril Maleate 10 Mg Tab) 10 mg PO DAILY [facility]; Protocol Stop: 08/20/22 08:59 Last Admin: 07/21/22 08:46 Dose: 10 mg Documented By: GPF Lorazepam (Lorazepam 0.5 Mg Tab) 0.5 mg PO BID [facility] Stop: 08/19/22 20:59 Last Admin: 07/20/22 20:11 Dose: 0.5 mg Documented By: ISHAN Olanzapine (Olanzapine 10 Mg/2.1 Ml Sdv) 2.5 mg IM Q4H PRN PRN Reason: Anxiety/Agitation Stop: 08/19/22 21:44 Last Admin: 07/21/22 05:56 Dose: 2.5 mg Documented By: ISHAN Warfarin Sodium (Warfarin Sod 6 Mg Tab) 6 mg PO [id number] [facility] Stop: 08/19/22 15:59 Last Admin: 07/20/22 17:54 Dose: 6 mg Documented By: THONG Discontinued Medications Hydrocodone Bitart/Acetaminophen (Hydrocodone/Acetamophen 5/325mg Tab) 1 tab PO ONE STA Stop: 07/20/22 12:27 Last Admin: 07/20/22 13:52 Dose: Not Given Documented By: THONG Hydrocodone Bitart/Acetaminophen (Hydrocodone/Acetamophen 5/325mg Tab) 1 tab PO ONE STA Stop: 07/20/22 13:27 Last Admin: 07/20/22 13:44 Dose: Not Given Documented By: THONG Diltiazem HCl (Diltiazem Hcl 5 Mg/Ml 5 Ml Vial) 5 mg IV NOW STA Stop: 07/20/22 13:49 Last Admin: 07/20/22 14:51 Dose: 5 mg Documented By: THONG Co-signed By: AXEL Furosemide (Furosemide Inj 20 Mg/2 Ml Vial) 20 mg IV ONE ONE Stop: 07/20/22 12:52 Last Admin: 07/20/22 13:18 Dose: 20 mg Documented By: THONG Furosemide (Furosemide 40 Mg/4 Ml Vial) 40 mg IV ONE ONE Stop: 07/20/22 22:02 Last Admin: 07/20/22 22:32 Dose: 40 mg Documented By: ISHAN Sodium Chloride (Nss) 500 mls @ 999 mls/hr IV .Q31M ONE Stop: 07/20/22 09:56 Last Infusion: 07/20/22 10:18 Dose: 0 mls/hr Documented By: Admin: 07/20/22 09:47 Dose: 999 mls/hr Documented By: SHIVAM Ertapenem 1,000 mg/ Syringe 10 mls @ 2 mls/min IV NOW STA Stop: 07/20/22 10:36 Last Admin: 07/20/22 11:07 Dose: 2 mls/min Documented By: SHIVAM Daptomycin 325 mg/ Syringe 6.5 mls @ 3.25 mls/min IV NOW STA; Protocol Stop: 07/20/22 10:37 Last Admin: 07/20/22 11:41 Dose: 3.25 mls/min Documented By: TREVER Magnesium Sulfate/Dextrose (Magnesium Sulfate / D5w) 1 gm in 100 mls @ 50 mls/hr IV Q2H [facility] Stop: 07/20/22 16:51 Last Infusion: 07/20/22 17:54 Dose: 0 mls/hr Documented By: Admin: 07/20/22 15:28 Dose: 50 mls/hr Documented By: Infusion: 07/20/22 15:18 Dose: 50 mls/hr Documented By: Admin: 07/20/22 13:18 Dose: 50 mls/hr Documented By: THONG Acetaminophen (Ofirmev) 1,000 mg in 100 mls @ 400 mls/hr IV NOW STA Stop: 07/20/22 13:27 Last Infusion: 07/20/22 13:54 Dose: 0 mls/hr Documented By: Admin: 07/20/22 13:39 Dose: 400 mls/hr Documented By: THONG Diltiazem HCl 125 mg/ Dextrose 125 mls @ 5 mls/hr IV .Q24H [facility]; Protocol Stop: 08/19/22 13:59 Last Titration: 07/20/22 18:20 Dose: 0 mg/hr, 0 mls/hr Documented By: THONG Co-signed By: AXEL Admin: 07/20/22 14:45 Dose: 5 mg/hr, 5 mls/hr Documented By: THONG Co-signed By: AXEL Acetaminophen (Ofirmev) 1,000 mg in 100 mls @ 400 mls/hr IV NOW STA Stop: 07/20/22 22:15 Last Infusion: 07/20/22 22:48 Dose: 0 mls/hr Documented By: Admin: 07/20/22 22:33 Dose: 400 mls/hr Documented By: ISHAN Ipratropium [place] (Ipratropium [place] Neb Soln 0.02% 2.5 Ml Vial) 0.5 mg INH ONE STA Stop: 07/20/22 22:08 Last Admin: 07/20/22 22:53 Dose: 0.5 mg Documented By: JOZEF Levalbuterol HCl (Levalbuterol 1.25mg/0.5ml Neb) 1.25 mg INH ONE STA Stop: 07/20/22 22:08 Last Admin: 07/20/22 22:53 Dose: 1.25 mg Documented By: JOZEF Lorazepam (Lorazepam 2 Mg/1 Ml Vial) 0.5 mg IV NOW STA Stop: 07/20/22 09:28 Last Admin: 07/20/22 09:47 Dose: 0.5 mg Documented By: SHIVAM Lorazepam (Lorazepam 0.5 Mg Tab) 0.5 mg PO NOW STA Stop: 07/20/22 21:36 Last Admin: 07/21/22 00:16 Dose: Not Given Documented By: ISHAN Metoprolol Tartrate (Metoprolol Tartrate 1 Mg/Ml Vial) 5 mg IV NOW STA Stop: 07/20/22 09:27 Last Admin: 07/20/22 09:47 Dose: 5 mg Documented By: SHIVAM Metoprolol Tartrate (Metoprolol Tartrate 1 Mg/Ml Vial) 5 mg IV NOW STA Stop: 07/20/22 10:08 Last Admin: 07/20/22 10:41 Dose: 5 mg Documented By: SHIVAM Olanzapine (Olanzapine 10 Mg/2.1 Ml Sdv) 2.5 mg IM NOW STA Stop: 07/20/22 22:02 Last Admin: 07/20/22 22:33 Dose: 2.5 mg Documented By: ISHAN Imaging Data Radiologist's Impression: Cervical Spine CT 07/20/22 11:00 CT OF THE CERVICAL SPINE WITHOUT CONTRAST CLINICAL HISTORY: trauma COMPARISON STUDY: Cervical spine CT April 12, 2022. TECHNIQUE: Helical axial images of the cervical spine were obtained without IV contrast. Sagittal and coronal reconstructions were viewed. Automated exposure control was utilized for the study. A dose lowering technique was utilized adhering to the principles of ALARA. FINDINGS: Incidental note is made of interstitial pulmonary edema and partially visualize bilateral pleural effusions. Anterolisthesis of C3 on C4 and C4 on C5 is unchanged since prior CT. This is due to severe facet arthrosis. There is moderate multilevel degenerative disc disease. No acute cervical spine fracture is present. The appearance of the cervical spine is unchanged. IMPRESSION: 1. No acute cervical spine fracture or subluxation. No change in appearance of the cervical spine. 2. Interstitial pulmonary edema with partially visualized bilateral pleural effusions. ACT 112: Negative or not required by law. Electronically signed by: Johnnie Alegre M.D. 07/21/2022 7:[address] 07/20/22 11:00 CT OF THE HEAD WITHOUT CONTRAST CLINICAL HISTORY: posterior head trauma, on blood thinner COMPARISON STUDY: Head CT June 03, 2022. CT DOSE: 982.26 mGy.cm TECHNIQUE: Helical axial images of the head were obtained without IV contrast. Automated exposure control was utilized for the study. A dose lowering technique was utilized adhering to the principles of ALARA. FINDINGS: No acute intracranial hemorrhage, midline shift or mass effect is present. 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 The ventricular system is unremarkable. The basal cisterns are patent. No extra- axial collections are present. There are no findings to suggest acute dural sinus thrombosis or acute territorial infarct. Small right parietal scalp contusion is noted. There is no calvarial fracture. IMPRESSION: 1. No acute intracranial findings. No change in appearance of the brain. 2. Small right parietal scalp contusion. No acute calvarial fracture. ACT 112: Negative or not required by law. Electronically signed by: Johnnie Alegre M.D. 07/21/2022 7:46 AM Discharge Plan Visit Data Chief Complaint: Illness Stated Complaint: upset stomach, leg cellulitis ED Provider: Lizbet,Wil F Discharge Problem: Atrial fibrillation with RVR, Sepsis, Cellulitis of right leg Patient Disposition: Admitted As Inpatient Discharge Instructions Interventions: ED Discharge Assessment Last Done: 07/20/22 12:26 : Sepsis Qualifiers: Sepsis type: sepsis due to unspecified organism Sepsis acute organ dysfunction status: without acute organ dysfunction Qualified Code(s): A41.9 - Sepsis, unspecified organism
--- NOTE | 2022-07-20 09:47 | XRay Report ---
XR chest 1V portable HISTORY: shortness of breath COMPARISON: Chest 06/16/2022. FINDINGS: Interval progression of the mild pulmonary edema and small bilateral pleural effusions. No pneumothorax. The heart remains enlarged. There are postoperative changes and a cardiac valve prosthe sis again noted. IMPRESSION: Interval progression of the pulmonary edema and small bilateral pleural effusions. ACT 112: Negative or not required by law. Electronically signed by: Aneesh De La Vega M.D. 07/20/2022 9:45 AM
[2022-07-20 10:05] LABS: Basophils # (auto) 0.01 K/uL (0-0.2); Basophils % (auto) 0.1 %; Eosinophils # (auto) 0.34 K/uL (0-0.50); Eosinophils % (auto) 2.8 %; Hematocrit (blood only) 33.5 % (37.0-47.0); Hemoglobin 10.6 g/dl (12.0-16.0); Immature Granulocytes # (auto) 0.04 K/uL (0.01-0.20); Immature Granulocytes % (auto) 0.3 %; Lymphocytes # (auto) 0.74 K/uL (1.2-3.4); Lymphocytes % (auto) 6.1 %; Mean Corpuscular Hemoglobin 29.1 pg (25.0-34.0); Mean Corpuscular Hgb Conc 31.6 g/dL (32.0-36.0); Mean Platelet Volume 12.4 fL (9.4-12.4); Monocytes # (auto) 0.76 K/uL (0.11-0.59); Monocytes % (auto) 6.3 %; Neutrophils # (auto) 10.26 K/uL (1.40-6.50); Neutrophils % (auto) 84.4 %; Platelet Count 192 K/uL (130-400); RDW Coefficient of Variation 15.2 % (11.5-14.5); RDW Standard Deviation 50.8 fL (36.4-46.3); Red Blood Count 3.64 M/uL (4.20-5.40); White Blood Count 12.15 K/ul (4.8-10.8)
[2022-07-20 10:18] LABS: Troponin I High Sensitivity 35.9 pg/ml (0-14)
[2022-07-20 10:23] LABS: INR 1.8 (0.9-1.1); Prothrombin Time 18.6 Seconds (9.0-12.0)
[2022-07-20 10:30] LABS: Albumin Level 4.1 gm/dl (3.4-5.0); BUN Creatinine Ratio 14.1 (10-20); Bilirubin Direct 0.3 mg/dl (0-0.2); Bilirubin,Total 1.1 mg/dl (0.2-1.0); Calcium 9.3 mg/dl (8.5-10.1); Creatinine Clr Calc Pharmacy 59.7 ml/min; Est GFR (African American) 94.6 ml/min; Est GFR (Non-African American) 81.6 ml/min; Magnesium 1.6 mg/dl (1.7-2.4); Potassium 4.1 mmol/L (3.5-5.1); Total Protein 7.2 gm/dl (6.0-8.3)
[2022-07-20] MEDS ORDERED: ERTAPENEM SODIUM 1,000 MG in SYRINGE 0 ML IV STA (10:32)
[2022-07-20] MEDS ORDERED: DAPTOmycin 400 MG in SYRINGE 0 ML IV STA (10:33)
[2022-07-20] MEDS ORDERED: DAPTOmycin 325 MG in SYRINGE 0 ML IV STA (10:36)
[2022-07-20 11:19] LABS: Influenza A virus by PCR Negative (Neg); Influenza B virus by PCR Negative (Neg); RSV by PCR Negative (Neg); SARS CoV2 RNA(COVID-19) Ceph NEGATIVE (Negative)
--- NOTE | 2022-07-20 12:03 | History & Physical Report ---
Date of Service July 20, 2022 Assessment & Plan (1) Sepsis: Plan: source appears to be RLE infection. She did receive NSS 500cc in setting of tachycardia, fever, and leukocytosis. Volume status is difficult to assess at this time. She is reporting being unable to breathe and is refusing the CT scan because she cannot lie flat. Will cautiously give her some Lasix IV to see if this helps and then reassess. Would recommend a weaver be placed prior to administering this but was unable to discuss this with patient or family with everything going on. Cont current abx. It doesn't appear her rash on the back is related to these abx. Cont pending culture results and clinical improvement. Lactate 1.5. She is febrile to 39.8C which is certainly adding to her discomfort. After confirming that she is not allergic to acetaminophen, will give 1gm IV of this now. (2) Atrial fibrillation with RVR: Plan: known chronic afib, likely more tachycardic related to infection that has been ongoing and uncontrolled for at least one month now. Lopressor given in the ER. Will add a diltiazem drip without bolus now given ongoing HR in the 120-140s. Cont home digoxin, coreg. (3) Acute metabolic encephalopathy: Plan: appears confused and agitated which is very unlike her per family members. May be from underlying infection, afib with RVR, medication side effect, etc. (4) Cellulitis of right leg: Plan: 2/2 RLE wound. Per outpatient records she developed what appeared to be a noninfected cut on 05/17 and was given topical bactroban. This got bigger and she received a course of doxycycline from urgent care which upset her stomahc. She was then given azithromycin on 06/25 by per PCP. She went to the ER who recommended admission for IV abx but patient refused admission. Would admit and monitor for sepsis now and cont IV ertapenem and daptomycin. Wound culture ordered/blood cultures pending. Notably, I cannot see any wound clinic notes from earlier this week in the [employer] or [employer] systems. Will request records for this. (5) Pulmonary edema: Plan: Per family there are some reports of shortness of breath over the past couple of days. She has progressed pulmonary edema on chest xray today with small bilat pleural effusions. Lasix as above. Monitor closely on telemetry. (6) Anemia: Plan: baseline Hb around 11.8 and she is currently 10.6. There is no acute bleeding or need for transfusion, cont to monitor. (7) Rash: Plan: Linear rash on lower back. Almost appears consistent with a contact dermatitis, but other causes are possible. She has multiple allergies and was given Levaquin on 07/06 by someone outpatient. She has a known h/o rash to fluoroquinolones. She was also given a course of clindamycin for one week in mid-late June. Would monitor this for now while off fluoroquinolones. I cannot gather from the patient if this is even bothering her much at this time and cannot confirm with her what she took or didn't. I am concerned that adding an antihistamine at this point will worsen her confusion, so will just monitor. (8) Hypomagnesemia: Plan: It isn't clear how much she has been eating and she was vomiting last night. replace with 2gms IV now and repeat in am. DVT proph: anticoagulated on coumadin with an INR 1.8 today Full Code per my discussion with her on admission. Dispo-PCU. 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 She was in the ER on 06/26 and was encouraged to stay for IV antibiotics to treat this, but decided to leave. She has a h/o afib and is presenting today with a septic appearance in afib with RVR. Her heart rate was in the 160s and improved the 120s with 500cc IVF and two doses of Lopressor 5mg IV. She was also unable to lie flat for a CT head and C-spine after a reported fall a few days ago. She was given ativan 0.5mg IV for anxiety related to attempting to lie flat for the CT scan today. The patient is current agitated and in distress, so cannot give a clear history although confirms that she knows where she is. The history was gathered from her daughter and granddaughter, as well as her all who are at bedside with her. They report the patient being seen regularly in the wound care clinic for a RLE wound, which looked "good" on Saturday of this week. There was no surrounding redness present and no drainage,they report. Yesterday, the patient looked fine and was able to go and get her hair done, etc. She started vomiting overnight and didn't get much sleep. There is also a linear erythematous rash present on her lower back that was there when she arrived per PBX INSPECTOR. Meds were reconciled per external history and outpatient EMR as family was unable to confirm and the patient was screaming out that she was miserable and unable to give a history. She is currently on a small amount of oxygen. PBX INSPECTOR reports that she became hypoxic after receiving Ativan. Patient is easily agitated by the nasal canula and by family members who are assiting her. Allergies Allergy/AdvReac Type Severity Reaction Status Date / Time morphine Allergy Severe ANAPHYLAXIS Verified 06/03/22 02:20 Cephalosporins Allergy Intermediate HIVES Verified 07/20/22 10:44 ciprofloxacin Allergy Intermediate fever, rash Verified 06/03/22 02:20 Iodinated Contrast Media Allergy Intermediate fever, Verified 06/03/22 02:20 diaphoretic latex Allergy Intermediate skin Verified 06/03/22 02:20 blistering meclizine Allergy Intermediate rash Verified 06/03/22 02:20 Penicillins Allergy Intermediate hives Verified 07/20/22 10:44 promethazine Allergy Intermediate CAUSES PT Verified 06/03/22 02:20 TO "BE HYPER" vancomycin Allergy Intermediate fever, rash Verified 06/03/22 02:20 procaine Allergy Mild localized Verified 06/03/22 02:21 swelling tetanus toxoid, adsorbed Allergy Mild pt states Verified 06/03/22 02:20 was told that she could be allergic to Cipro Allergy Unknown fever, rash Verified 01/02/17 15:49 oxycodone [From Percocet] Allergy Hives Verified 06/03/22 02:21 pneumococcal vaccine Allergy Hives Verified 06/03/22 02:22 sumatriptan AdvReac Intermediate 'doesnt Verified 06/03/22 02:20 help' Flu Virus Vaccine Allergy Intermediate whole body Uncoded 06/03/22 02:20 rash Home Medications Medication Instructions Recorded Confirmed Type albuterol sulfate 90 mcg/actuation 2 puff inhalation Q6H PRN 09/01/18 07/20/22 History aerosol inhaler (ProAir HFA) Shortness Of Breath Or Wheezing carvedilol 12.5 mg tablet 12.5 mg PO BID 09/01/18 07/20/22 History diclofenac sodium 1 % topical gel 2 g topical BID PRN Pain 09/01/18 07/20/22 History lorazepam 0.5 mg tablet 0.5 mg PO BID 09/01/18 07/20/22 History triamcinolone acetonide 0.1 % 1 applic topical BID 09/01/18 07/20/22 History topical cream ramipril 2.5 mg capsule 2.5 mg PO DAILY 09/02/18 07/20/22 History digoxin 125 mcg (0.125 mg) tablet 125 mcg PO DAILY 04/29/22 07/20/22 History hydrocodone 5 mg-acetaminophen 325 1 tab PO Q4H PRN Pain 04/29/22 07/20/22 History mg tablet ondansetron HCl 8 mg tablet 8 mg PO TID PRN Nausea 04/29/22 07/20/22 History warfarin 2 mg tablet (Jantoven) 6 mg PO MOWEFR@0900 04/29/22 07/20/22 History warfarin 4 mg tablet 4 mg PO SUTUTHSA@0900 07/20/22 07/20/22 History Past Med/Surg History Medical History Adjustment disorder with depressed mood Atrial fibrillation Contrast media allergy Diastolic dysfunction with chronic heart failure Gastroparesis Generalized anxiety disorder Generalized osteoarthritis GERD (gastroesophageal reflux disease) Herpes labialis IBS (irritable bowel syndrome) Intractable migraine with aura Persistent atrial fibrillation Pulmonary HTN Ventral hernia Surgical History S/P mitral valve repair Status post left hip replacement Family History Mother Breast cancer Other Diabetes Heart disease Social History Smoking Status: Never smoker Hx Alcohol Use: No Hx Substance Use: No Preferred Language: Dominican Communication Ability: Effective Beliefs That Will Affect Care: None marital status: Current Living Situation: Spouse Feels Safe at Home: Yes Assistive Devices: None Review of Systems Review of Systems: Patient was unable to provide an accurate ROS as she has her eyes closed and is agitated and in moderate distress. Physical Exam Physical Exam: CONSTITUTIONAL: WNWD, vitals as above, eyes closed, speech intact but she is saying over and over that she is miserable and not feeling well. EYES: pupils are round and equal bilaterally, normal conjunctivae, no scleral icterus ENT: external ear and nose normal, oral mucous membranes are moist. NECK: trachea midline RESPIRATORY: clear to auscultation bilaterally, no crackles, rales or wheezes, normal respiratory effort CARDIOVASCULAR: irregular rate and irregular rhythm, S1 and 2 heard without murmurs, gallops or rubs, no JVD, no peripheral edema, CHEST: inspection of chest was normal GASTROINTESTINAL: soft, nontender, ND, no guarding MUSCULOSKELETAL: strength 5/5 throughout, head is normocephalic and atraumatic, she is able to sit up at bedside with assistance. SKIN: warm and dry, + rashes on lower back that is raised and erythemaous and linear as if scratched. She has a Stage II ulceration on her right anterior lower extremity that has purulent drainage and there is surrounding erythema including her foot and extending proximal to her knee but not including it. NEUROLOGIC: No facial palsy, no dysarthria. CN 2-12 grossly intact (she wasn't able to perform EOM test), alert and cooperative with prompting, but mostly lying with eyes closed and moaning/yelling out, normal speech, no tremor PSYCHIATRIC: alert cooperative and oriented to person, place. Couldn't state the year. Agitated. Results & Data Results & Data ([facility]) Vital Signs (Past 12 Hours) Vital Signs Temp Pulse Resp BP Pulse Ox O2 Del Method 07/20/22 11:10 123 H 24 100 07/20/22 11:01 26 H 07/20/22 11:01 134/101 H 07/20/22 10:41 119 H 22 100 07/20/22 10:41 111/83 07/20/22 10:00 120 H 19 88 L 07/20/22 10:00 133/76 07/20/22 09:23 38.0 C H 142 H 20 137/92 94 Room Air 07/20/22 10:41 126 H 111/83 07/20/22 09:47 134 H 132/93 Laboratory Results Short CBC 07/20/22 Range/Units 09:35 WBC 12.15 H (4.8-10.8) K/ul Hgb 10.6 L (12.0-16.0) g/dl Hct 33.5 L (37.0-47.0) % Plt Count 192 (130-400) K/uL BMP 07/20/22 09:35 Sodium 134 L Potassium 4.1 Chloride 101 Carbon Dioxide 25 BUN 10 Creatinine 0.71 Glucose 134 H Calcium 9.3 Liver Function 07/20/22 Range/Units 09:35 Total Bilirubin 1.1 H (0.2-1.0) mg/dl Direct Bilirubin 0.3 H (0-0.2) mg/dl AST 19 (13-39) U/L ALT 11 (7-52) U/L Alkaline Phosphatase 44 (34-104) U/L Albumin 4.1 (3.4-5.0) gm/dl Diagnostic Findings Chest X-Ray 07/20/22 09:26 XR chest 1V portable HISTORY: shortness of breath COMPARISON: Chest 06/16/2022. FINDINGS: Interval progression of the mild pulmonary edema and small bilateral pleural effusions. No pneumothorax. The heart remains enlarged. There are postoperative changes and a cardiac valve prosthesis again noted. IMPRESSION: Interval progression of the pulmonary edema and small bilateral pleural effusions. ACT 112: Negative or not required by law. Electronically signed by: Aneesh De La Vega M.D. 07/20/2022 9:45 AM Code Status & VTE Plan VTE Prophylaxis Plan VTE Prophylaxis will be ordered: Yes
[2022-07-20] MEDS ORDERED: HYDROCODONE/ACETAMOPHEN 5/325MG TAB PO STA ×2 (12:26→13:26)
[2022-07-20] MEDS ORDERED: FUROSEMIDE INJ 20 MG/2 ML VIAL IV ONE (12:51)
[2022-07-20] MEDS ORDERED: POLYETHYLENE (MIRALAX) 17 GM PACK PO PRN (12:52)
[2022-07-20] MEDS ORDERED: ACETAMINOPHEN 1,000 MG/100 ML VIAL IV STA ×2 (13:13→22:01)
[2022-07-20] MEDS: MAGNESIUM SULFATE / D5W 1 GM/100 ML BAG IV SCH ×2 (13:18→15:28)
[2022-07-20] MEDS ORDERED: dilTIAZem HCl 5 MG/ML 5 ML VIAL IV STA (13:48)
[2022-07-20] MEDS ORDERED: STAT IV Infusion **Titration per Protocol STA (13:48)
[2022-07-20] MEDS ORDERED: dilTIAZem HCL 125 MG in DEXTROSE 5% 100 ML IV SCH (14:00)
[2022-07-20] MEDS ORDERED: DICLOFENAC SOD 1% GEL 100 GM TUBE EXT PRN (14:01)
[2022-07-20 15:21] LABS: Appearance Urine Clear (Clear); Bacteria Urine Automated Negative (Negative); Bilirubin Urine Negative (Negative); Blood Urine 1+ (Negative); Cast Urine Automated 0 /lpf (0-5); Color Urine Yellow; Epithelial Cell Urine Auto 0-5 /lpf (0-5); Glucose Urine UA Negative (Negative); Ketones Urine Negative (Negative); Leukocyte Esterase Urine Negative (Negative); Nitrite Urine Negative (Negative); Protein Urine Negative (Negative); RBC Urine Automated 0-4 /hpf (0-4); Specific Gravity Urine 1.007 (1.000-1.030); Urobilinogen Urine Negative (Negative); WBC Urine Automated 0 /hpf (0-5)
--- NOTE | 2022-07-20 17:12 | Electrocardiogram Report ---
Test Reason : Blood Pressure : / mmHG Vent. Rate : 163 BPM Atrial Rate : 111 BPM P-R Int : 000 ms QRS Dur : 060 ms QT Int : 264 ms P-R-T Axes : 000 109 238 degrees QTc Int : 434 ms Poor data quality, interpretation may be adversely affected Atrial fibrillation Low voltage QRS Diffuse Nonspecific ST and T wave abnormality Abnormal ECG When compared with ECG of 26-JUN-2022 21:02, HR has increased by 79 bpm Confirmed by Viraj Purvis ([id number]) on 07/20/2022 5:11:38 PM Referred By: REFERRED SELF Confirmed By:Viraj Purvis
[2022-07-20] MEDS: COLLAGENASE OINT 30 GM TUBE EXT SCH (17:54)
[2022-07-20] MEDS: WARFARIN SOD 6 MG TAB PO SCH (17:54)
[2022-07-20] MEDS: carvediloL 12.5 MG TAB PO SCH (20:12)
[2022-07-20] MEDS ORDERED: LORazepam 0.5 MG TAB PO SCH (21:00)
[2022-07-20] MEDS ORDERED: LORazepam 0.5 MG TAB PO STA (21:35)
--- NOTE | 2022-07-20 21:43 | Communication Note ---
Date of Service: July 20, 2022 Increased agitation/confusion noted after nighttime Ativan administration as per RN. AP Delirium Hold home RTC Ativan for now Zyprexa as needed agitation One-to-one nursing as per RN discretion Will relay to AM provider.
[2022-07-20] MEDS ORDERED: OLANZapine 10 MG/2.1 ML SDV IM PRN (21:45)
[2022-07-20] MEDS ORDERED: XOPENEX/ATROVENT 1.25mg/0.5MG NEB COMBO NEB STA (22:01)
[2022-07-20] MEDS ORDERED: OLANZapine 10 MG/2.1 ML SDV IM STA (22:01)
[2022-07-20] MEDS ORDERED: FUROSEMIDE 40 MG/4 ML VIAL IV ONE (22:01)
[2022-07-20] MEDS ORDERED: IPRATROPIUM BROMIDE NEB SOLN 0.02% 2.5 ML VIAL INH STA (22:07)
[2022-07-20] MEDS ORDERED: LEVALBUTEROL 1.25MG/0.5ML NEB INH STA (22:07)
[2022-07-21 06:19] LABS: Hematocrit (blood only) 30.8 % (37.0-47.0); Hemoglobin 9.8 g/dl (12.0-16.0); Mean Corpuscular Hemoglobin 28.8 pg (25.0-34.0); Mean Corpuscular Hgb Conc 31.8 g/dL (32.0-36.0); Mean Corpuscular Volume 90.6 fL (80.0-100.0); Mean Platelet Volume 12.6 fL (9.4-12.4); Platelet Count 170 K/uL (130-400); RDW Coefficient of Variation 15.4 % (11.5-14.5); RDW Standard Deviation 51.2 fL (36.4-46.3); White Blood Count 15.91 K/ul (4.8-10.8)
[2022-07-21 06:35] LABS: BUN Creatinine Ratio 16.7 (10-20); Calcium 8.7 mg/dl (8.5-10.1); Creatinine Clr Calc Pharmacy 52.4 ml/min; Est GFR (African American) 92.3 ml/min; Est GFR (Non-African American) 79.7 ml/min; Magnesium 1.8 mg/dl (1.7-2.4); Phosphorus 4.2 mg/dl (2.5-4.9); Potassium 3.8 mmol/L (3.5-5.1)
--- NOTE | 2022-07-21 07:47 | CT Scan Report ---
CT OF THE HEAD WITHOUT CONTRAST CLINICAL HISTORY: posterior head trauma, on blood thinner COMPARISON STUDY: Head CT June 03, 2022. CT DOSE: 982.26 mGy.cm TECHNIQUE: Helical axial images of the head were obtained without IV contrast. Automated exposure con trol was utilized for the study. A dose lowering technique was utilized adhering to the principles o f ALARA. FINDINGS: No acute intracranial hemorrhage, midline shift or mass effect is present. 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 The ventricular system is unremarkable. The basa l cisterns are patent. No extra-axial collections are present. There are no findings to suggest acute dural sinus thrombosis or acute territorial infarct. Small right parietal scalp contusion is noted. There is no calvarial fracture. IMPRESSION: 1. No acute intracranial findings. No change in appearance of the brain. 2. Small right parietal scalp contusion. No acute calvarial fracture. ACT 112: Negative or not required by law. Electronically signed by: Johnnie Alegre M.D. 07/21/2022 7:46 AM
--- NOTE | 2022-07-21 07:50 | CT Scan Report ---
CT OF THE CERVICAL SPINE WITHOUT CONTRAST CLINICAL HISTORY: trauma COMPARISON STUDY: Cervical spine CT April 12, 2022. TECHNIQUE: Helical axial images of the cervical spine were obtained without IV contrast. Sagittal a nd coronal reconstructions were viewed. Automated exposure control was utilized for the study. A do se lowering technique was utilized adhering to the principles of ALARA. FINDINGS: Incidental note is made of interstitial pulmonary edema and partially visualize bilateral p leural effusions. Anterolisthesis of C3 on C4 and C4 on C5 is unchanged since prior CT. This is due t o severe facet arthrosis. There is moderate multilevel degenerative disc disease. No acute cervical s pine fracture is present. The appearance of the cervical spine is unchanged. IMPRESSION: 1. No acute cervical spine fracture or subluxation. No change in appearance of the cervical spine. 2. Interstitial pulmonary edema with partially visualized bilateral pleural effusions. ACT 112: Negative or not required by law. Electronically signed by: Johnnie Alegre M.D. 07/21/2022 7:49 AM
[2022-07-21] MEDS: DIGOXIN 0.125 MG TAB PO SCH (08:46)
[2022-07-21] MEDS: carvediloL 12.5 MG TAB PO SCH ×2 (08:46→20:02)
[2022-07-21] MEDS ORDERED: ENALAPRIL MALEATE 10 MG TAB PO SCH (09:00)
[2022-07-21 09:13] LABS: Ferritin 157.8 ng/ml (8-388)
[2022-07-21] MEDS: COLLAGENASE OINT 30 GM TUBE EXT SCH (10:18)
[2022-07-21] MEDS: HYDROCODONE/ACETAMOPHEN 5/325MG TAB PO PRN ×3 (10:19→21:43)
[2022-07-21] MEDS: ERTAPENEM SODIUM 1,000 MG in SYRINGE 0 ML IV SCH (10:19)
[2022-07-21] MEDS: DAPTOmycin 200 MG in SYRINGE 0 ML IV SCH (10:19)
[2022-07-21] MEDS ORDERED: KETOROLAC TROMETHAMINE 15 MG/ML VIAL IV PRN (10:50)
[2022-07-21] MEDS: busPIRone 7.5 MG TAB PO SCH ×2 (11:41→20:02)
--- NOTE | 2022-07-21 15:57 | Hospitalist Progress Note ---
Date of Service July 21, 2022 Assessment & Plan (1) Sepsis: (2) Cellulitis of right leg: (3) Atrial fibrillation with RVR: Plan 77-year-old lady with PMH of pulmonary hypertension, persistent A-fib, diastolic dysfunction with chronic heart failure, irritable bowel syndrome, gastroparesis, herpes labialis, GERD, generalized osteoarthritis, intractable migraine with aura without status migrainous, generalized anxiety disorder, status post mitral valve repair, ventral hernia, adjustment disorder with depressed mood presented to the ED 07/20 with sepsis secondary to RLE infection that has been resistant to at least 2 courses of antibiotic. She was here in the ED on 06/26 and was encouraged to stay for IV antibiotics to treat RLE infection but decided to leave. Per family member patient has been noncompliant with medication for the past few days which is also likely contributing to her A-fib with RVR. She is being managed for the following: Sepsis POA: High temperature, pulse, WBC at presentation. Lactate 1.5. RLE cellulitis Acute metabolic encephalopathy Patient presenting with sepsis secondary to RLE cellulitis status post at least 2 outpatient courses of antibiotic failure. Was confused and agitated at pre sentation. Per outpatient records she developed what appeared to be a noninfected cut on 05/17 and was given topical bactroban. This got bigger and she received a course of doxycycline from urgent care which upset her stomach. She was then given azithromycin on 06/25 by per PCP. She went to the ER who recommended admission for IV abx but patient refused admission. Admitting C-spine CT with no acute findings. Admitting head CT with no acute findings. Follow-up admitting blood culture and right leg wound culture. Continue with daptomycin 07/21 and ertapenem 07/21. ID consult. Continue with pain management with hydrocodone and Toradol. Avoid Ativan, can use Zyprexa for agitation. BuSpar for anxiety. Atrial fibrillation with RVR: History of chronic A-fib, likely tachycardic in the setting of infection, heart rate getting better. Continue home digoxin and Coreg. Continue with Coumadin. Telemetry monitoring. Patient with no chest pain. 07/21 echo with EF of >70%, normal LV systolic function and wall motion, mild concentric LVH. Left atrial size is normal. Right atrium is mildly dilated. Pulmonary edema: Patient reporting difficulty breathing, on 2 L oxygen and saturating well, admitting CXR with interval progression of the pulmonary edema and small bilateral pleural effusion. Patient received a dose of IV Lasix at admission, will use Lasix as needed as BP tolerates. Monitor over telemetry. Low back rash: Linear and papular rash over the lower back, reports about the same without progression since last 3 days, denies itching or pain. Does not look infected. Reports receiving Levaquin 7 days prior this rash developed per patient. Other chronic medical conditions: Anemia: Baseline hemoglobin around 11, will continue to monitor hemoglobin. Iron profile with low iron, vitamin B12 and folate WNL. Will use Venofer in this admission once patient is more stable. HTN, HLD, HFpEF, IBS, gastroparesis, GERD, generalized anxiety disorder: BuSpar. Home meds as able. Small frequent meals due to gastroparesis history. DVT prophylaxis: Patient on Coumadin Full code Admission and Anticipated Discharge Date Admission Date: July 20, 2022 Subjective Patient seen and examined at bedside as a follow-up of sepsis POA, RLE cellulitis, acute metabolic encephalopathy. Patient was lying in bed, oriented, NAD, on 2 L nasal cannula oxygen, as confused/agitated after nighttime Ativan dose and needed IM Zyprexa, patient with poor appetite and had large loose bowel movement per RN. Patient reports pain in her RLE, appears anxious and reports difficulty breathing, patient is saturating well on 2 L nasal cannula oxygen, reports no appetite, denies low back pain or warmth, has rash over lower back which has been stable per family members since last 3 days. Patient denies chest pain or acute cough or belly pain. Physical Exam Physical Exam: GENERAL: Alert and oriented x3. on 2L NC O2. Mildly anxious appearing. HEENT: No pallor, no icterus. Pupils equal, round and reactive to light. Oral mucosa moist. NECK: No JVD, no neck masses. HEART: S1 and S2 heard. Regular rate and rhythm. No murmur, no gallop. RESPIRATORY SYSTEM: Normal AP diameter. No accessory muscle use. No wheezing, no crackles. ABDOMEN: Soft, bowel sounds present, nontender, no distention. CENTRAL NERVOUS SYSTEM: No facial droop. Speech is clear. Obeys simple commands. Moves extremities. EXTREMITIES: RLE w/ erythema/warmth/tender and dressing over stage II ulceration. Lower back rash linear and patches of raised erythematous areas. Results & Data Results & Data ([facility]) Vital Signs (Past 12 Hours) Vital Signs Temp Pulse Pulse Pulse Resp BP Pulse Ox 07/21/22 12:00 37 C 97 H 20 92/59 L 100 07/21/22 12:34 91 07/21/22 08:00 36.8 C 114 H 18 127/71 97 07/21/22 08:00 07/21/22 08:46 120 H 07/21/22 03:54 36.5 C 77 18 122/62 98 O2 Del Method O2 Flow Rate 07/21/22 12:00 Nasal Cannula 3 07/21/22 12:34 07/21/22 08:00 Nasal Cannula 2 07/21/22 08:00 Nasal Cannula 4 07/21/22 08:46 07/21/22 03:54 Nasal Cannula 4 (1) Sepsis Sepsis acute organ dysfunction status: without acute organ dysfunction Sepsis type: sepsis due to unspecified organism Qualified Code(s): A41.9 - Sepsis, unspecified organism
[2022-07-21] MEDS: WARFARIN SOD 4 MG TAB PO SCH (16:22)
[2022-07-21] MEDS: MELATONIN 3 MG TAB PO PRN (21:42)
[2022-07-22 05:59] LABS: BUN Creatinine Ratio 17.7 (10-20); Calcium 8.5 mg/dl (8.5-10.1); Creatinine Clr Calc Pharmacy 26.8 ml/min; Est GFR (Non-African American) 35.3 ml/min; Magnesium 1.9 mg/dl (1.7-2.4); Potassium 3.6 mmol/L (3.5-5.1)
[2022-07-22 06:07] LABS: Hematocrit (blood only) 27.9 % (37.0-47.0); Mean Corpuscular Hemoglobin 29.3 pg (25.0-34.0); Mean Corpuscular Hgb Conc 32.3 g/dL (32.0-36.0); Mean Corpuscular Volume 90.9 fL (80.0-100.0); Mean Platelet Volume 12.4 fL (9.4-12.4); Platelet Count 141 K/uL (130-400); RDW Coefficient of Variation 15.5 % (11.5-14.5); RDW Standard Deviation 51.2 fL (36.4-46.3); Red Blood Count 3.07 M/uL (4.20-5.40); White Blood Count 10.61 K/ul (4.8-10.8)
--- NOTE | 2022-07-22 06:19 | Communication Note ---
Date of Service: July 22, 2022 Patient not voiding as much as per RN. Serum creatinine 1.41 (from 0.72 yesterday) as per RN AP ARF Baseline UA Decrease maintenance Coreg dose given borderline BP to avoid ATN Hold enalapril and Toradol Monitor creatinine sponsored IV albumin (preferred over crystalloid given congestion on CXR on admission) Will relay to AM provider.
[2022-07-22] MEDS: ALBUMIN 25% 100 mL 25 GM/100 ML VIAL IV SCH ×3 (06:53→22:16)
[2022-07-22] MEDS: DIGOXIN 0.125 MG TAB PO SCH (09:04)
[2022-07-22] MEDS: busPIRone 7.5 MG TAB PO SCH ×2 (09:04→20:05)
[2022-07-22] MEDS: carvediloL 3.125 MG TAB PO SCH ×2 (09:04→20:05)
[2022-07-22] MEDS: ERTAPENEM SODIUM 1,000 MG in SYRINGE 0 ML IV SCH (10:19)
[2022-07-22] MEDS: HYDROCODONE/ACETAMOPHEN 5/325MG TAB PO PRN (10:19)
[2022-07-22] MEDS: DAPTOmycin 200 MG in SYRINGE 0 ML IV SCH (10:20)
[2022-07-22] MEDS: COLLAGENASE OINT 30 GM TUBE EXT SCH (10:20)
--- NOTE | 2022-07-22 15:16 | Hospitalist Progress Note ---
Date of Service July 22, 2022 Assessment & Plan (1) Sepsis: (2) Cellulitis of right leg: (3) Atrial fibrillation with RVR: Plan 77-year-old lady with PMH of pulmonary hypertension, persistent A-fib, diastolic dysfunction with chronic heart failure, irritable bowel syndrome, gastroparesis, herpes labialis, GERD, generalized osteoarthritis, intractable migraine with aura without status migrainous, generalized anxiety disorder, status post mitral valve repair, ventral hernia, adjustment disorder with depressed mood presented to the ED 07/20 with sepsis secondary to RLE infection that has been resistant to at least 2 courses of antibiotic. She was here in the ED on 06/26 and was encouraged to stay for IV antibiotics to treat RLE infection but decided to leave. Per family member patient has been noncompliant with medication for the past few days which is also likely contributing to her A-fib with RVR. She is being managed for the following: Sepsis POA: High temperature, pulse, WBC at presentation. Lactate 1.5. RLE cellulitis Acute metabolic encephalopathy Patient presenting with sepsis secondary to RLE cellulitis status post at least 2 outpatient courses of antibiotic failure. Was confused and agitated at pre sentation. Per outpatient records she developed what appeared to be a noninfected cut on 05/17 and was given topical bactroban. This got bigger and she received a course of doxycycline from urgent care which upset her stomach. She was then given azithromycin on 06/25 by per PCP. She went to the ER who recommended admission for IV abx but patient refused admission. Admitting C-spine CT with no acute findings. Admitting head CT with no acute findings. Follow-up admitting blood culture and right leg wound culture. Continue with daptomycin 07/21 and ertapenem 07/21. ID consult. Continue with pain management with hydrocodone and Toradol. Avoid Ativan, can use Zyprexa for agitation. BuSpar for anxiety. After Rt leg Cx, Dapto dropped 07/22. Will continue w/ ertapenem 07/21, Pt w/ multiple allergies to penicillins/cephalosporins/ciprofloxacin. Atrial fibrillation with RVR: History of chronic A-fib, likely tachycardic in the setting of infection, heart rate getting better. Continue home digoxin and Coreg. Continue with Coumadin. Telemetry monitoring. Patient with no chest pain. 2/11 echo with EF of >70%, normal LV systolic function and wall motion, mild concentric LVH. Left atrial size is normal. Right atrium is mildly dilated. ------->>>>>>>resolved. Acute Kidney Injury: Cr uptrended 1.41 from 0.72, likely prerenal 2/2 borderline hypotension. toradol and enalapril held; coreg dose reduced until hypotension improves. IV albumin for now as pt w/ pulmonary congestion. Pt needs constant cues for po intake of fluid per RN. Pulmonary edema: Patient reporting difficulty breathing, on 3 L oxygen and saturating well, admitting CXR with interval progression of the pulmonary edema and small bilateral pleural effusion. Patient received a dose of IV Lasix at admission, will use Lasix as needed as BP tolerates and renal fxn permits. Monitor over telemetry. Low back rash: Linear and papular rash over the lower back, at admission - reports about the same without progression since last 3 days [employer], denies itching or pain. Does not look infected. Reports receiving Levaquin 7 days prior this rash developed per patient. Stable. follow daily. Other chronic medical conditions: Anemia: Baseline hemoglobin around 11, will continue to monitor hemoglobin. Iron profile with low iron, vitamin B12 and folate WNL. Will use Venofer in this admission once patient is more stable. HTN, HLD, HFpEF, IBS, gastroparesis, GERD, generalized anxiety disorder: BuSpar. Home meds as able. Small frequent meals due to gastroparesis history. DVT prophylaxis: Patient on Coumadin Full code Admission and Anticipated Discharge Date Admission Date: July 20, 2022 Subjective Patient seen and examined at bedside as a follow-up of sepsis POA, RLE cellulitis, acute metabolic encephalopathy. Patient was lying in bed, oriented, NAD, on 3 L nasal cannula oxygen, had decreased urine output overnight and creatinine was noted to be elevated, likely secondary to borderline hypotension, Toradol and enalapril were held and Coreg dose was reduced. IV albumin given in place of fluid. Of note, patient did have some congestion on chest x-ray on admission. In the a.m., patient was NAD, reports being less anxious, reports improving RLE pain, has eaten better today, reports moving bowel. Rash over her back stayed same. Physical Exam Physical Exam: GENERAL: Alert and oriented x3. on 3L NC O2. Mildly anxious appearing. HEENT: No pallor, no icterus. Pupils equal, round and reactive to light. Oral mucosa moist. NECK: No JVD, no neck masses. HEART: S1 and S2 heard. Regular rate and rhythm. No murmur, no gallop. RESPIRATORY SYSTEM: Normal AP diameter. No accessory muscle use. No wheezing, b/b crackles. ABDOMEN: Soft, bowel sounds present, nontender, no distention. CENTRAL NERVOUS SYSTEM: No facial droop. Speech is clear. Obeys simple commands. Moves extremities. EXTREMITIES: RLE w/ erythema/warmth/tender and dressing over stage II ulceration --erythema/warmth/tender/swelling improving trend Lower back rash linear and patches of raised erythematous areas--stable. Results & Data Results & Data ([facility]) Vital Signs (Past 12 Hours) Vital Signs Temp Pulse Pulse Resp BP Pulse Ox O2 Del Method 07/22/22 11:23 36.5 C 75 17 107/55 L 99 Nasal Cannula 07/22/22 11:21 96 Nasal Cannula 07/22/22 08:00 Nasal Cannula 07/22/22 09:04 88 07/22/22 08:26 36.4 C L 88 16 110/69 97 Nasal Cannula 07/22/22 05:55 36.5 C 73 18 102/64 93 Nasal Cannula O2 Flow Rate 07/22/22 11:23 2 07/22/22 11:21 3 07/22/22 08:00 3 07/22/22 09:04 07/22/22 08:26 3 07/22/22 05:55 3 (1) Sepsis Sepsis acute organ dysfunction status: without acute organ dysfunction Sepsis type: sepsis due to unspecified organism Qualified Code(s): A41.9 - Sepsis, unspecified organism
[2022-07-22 15:36] LABS: BUN Creatinine Ratio 18.9 (10-20); Calcium 8.7 mg/dl (8.5-10.1); Creatinine Clr Calc Pharmacy 23.7 ml/min; Est GFR (African American) 35.4 ml/min; Est GFR (Non-African American) 30.6 ml/min; Potassium 3.6 mmol/L (3.5-5.1)
[2022-07-22] MEDS: WARFARIN SOD 4 MG TAB PO SCH (16:41)
[2022-07-22] MEDS ORDERED: ACETAMINOPHEN 325 MG TAB PO ONE (18:03)
[2022-07-22] MEDS: MELATONIN 3 MG TAB PO PRN (22:16)
--- NOTE | 2022-07-22 22:19 | Electrocardiogram Report ---
Test Reason : Blood Pressure : / mmHG Vent. Rate : 099 BPM Atrial Rate : 144 BPM P-R Int : 000 ms QRS Dur : 082 ms QT Int : 274 ms P-R-T Axes : 000 112 173 degrees QTc Int : 351 ms Atrial fibrillation with premature ventricular or aberrantly conducted complexes Right axis deviation Cannot rule out Anterior infarct (cited on or before 21-JUL-2022) Nonspecific T wave abnormality Abnormal ECG When compared with ECG of 20-JUL-2022 09:25, Vent. rate has decreased BY 64 BPM Confirmed by Codey Self ([id number]) on 07/22/2022 10:19:20 PM Referred By: REFERRED SELF Confirmed By:Codey Self
[2022-07-22 23:18] LABS: Appearance Urine Slightly Cloudy (Clear); Bilirubin Urine Negative (Negative); Blood Urine 3+ (Negative); Color Urine Yellow; Glucose Urine UA Negative (Negative); Ketones Urine Negative (Negative); Leukocyte Esterase Urine Trace (Negative); Nitrite Urine Negative (Negative); Protein Urine 1+ (Negative); Specific Gravity Urine 1.015 (1.000-1.030); Urobilinogen Urine Negative (Negative)
[2022-07-22 23:30] LABS: Epithelial Cell Urine 0-5 /lpf (0-5)
[2022-07-22 23:31] LABS: Bacteria Urine Negative (Negative); Calcium Oxalate Crystals Urine Present (None Prsent); RBC Urine 0-4 /hpf (0-4)
[2022-07-23] MEDS: HYDROCODONE/ACETAMOPHEN 5/325MG TAB PO PRN ×2 (01:28→23:16)
[2022-07-23 06:17] LABS: Hematocrit (blood only) 27.4 % (37.0-47.0); Hemoglobin 8.9 g/dl (12.0-16.0); Mean Corpuscular Hemoglobin 28.9 pg (25.0-34.0); Mean Corpuscular Hgb Conc 32.5 g/dL (32.0-36.0); Mean Platelet Volume 12.4 fL (9.4-12.4); Platelet Count 159 K/uL (130-400); RDW Coefficient of Variation 15.7 % (11.5-14.5); RDW Standard Deviation 51.2 fL (36.4-46.3); Red Blood Count 3.08 M/uL (4.20-5.40); White Blood Count 10.49 K/ul (4.8-10.8)
[2022-07-23] MEDS: ALBUMIN 25% 100 mL 25 GM/100 ML VIAL IV SCH ×3 (06:17→20:15)
[2022-07-23 06:32] LABS: BUN Creatinine Ratio 27.9 (10-20); Calcium 9.1 mg/dl (8.5-10.1); Creatinine Clr Calc Pharmacy 36.3 ml/min; Est GFR (African American) 59.2 ml/min; Est GFR (Non-African American) 51.1 ml/min; Phosphorus 3.1 mg/dl (2.5-4.9); Potassium 3.8 mmol/L (3.5-5.1)
[2022-07-23 06:45] LABS: INR 3.4 (0.9-1.1); Prothrombin Time 34.1 Seconds (9.0-12.0)
--- NOTE | 2022-07-23 08:29 | Electrocardiogram Report ---
Test Reason : Blood Pressure : / mmHG Vent. Rate : 078 BPM Atrial Rate : 072 BPM P-R Int : 000 ms QRS Dur : 078 ms QT Int : 420 ms P-R-T Axes : 000 096 097 degrees QTc Int : 478 ms Atrial fibrillation Rightward axis Nonspecific ST and T wave abnormality Prolonged QT Abnormal ECG When compared with ECG of 21-JUL-2022 06:07, Minimal criteria for Anterior infarct are no longer Present Nonspecific T wave abnormality no longer evident in Inferior leads Nonspecific T wave abnormality, improved in Lateral leads QT has lengthened Confirmed by Codey Self ([id number]) on 07/23/2022 8:29:37 AM Referred By: REFERRED SELF Confirmed By:Codey Self
[2022-07-23] MEDS: carvediloL 3.125 MG TAB PO SCH ×2 (08:36→20:13)
[2022-07-23] MEDS: DIGOXIN 0.125 MG TAB PO SCH (08:36)
[2022-07-23] MEDS: COLLAGENASE OINT 30 GM TUBE EXT SCH (08:36)
[2022-07-23] MEDS: busPIRone 7.5 MG TAB PO SCH ×2 (08:36→20:13)
[2022-07-23] MEDS: ERTAPENEM SODIUM 1,000 MG in SYRINGE 0 ML IV SCH (10:14)
--- NOTE | 2022-07-23 14:52 | Hospitalist Progress Note ---
Date of Service July 23, 2022 Assessment & Plan (1) Sepsis: (2) Cellulitis of right leg: (3) Atrial fibrillation with RVR: Plan 77-year-old lady with PMH of pulmonary hypertension, persistent A-fib, diastolic dysfunction with chronic heart failure, irritable bowel syndrome, gastroparesis, herpes labialis, GERD, generalized osteoarthritis, intractable migraine with aura without status migrainous, generalized anxiety disorder, status post mitral valve repair, ventral hernia, adjustment disorder with depressed mood presented to the ED 07/20 with sepsis secondary to RLE infection that has been resistant to at least 2 courses of antibiotic. She was here in the ED on 06/26 and was encouraged to stay for IV antibiotics to treat RLE infection but decided to leave. Per family member patient has been noncompliant with medication for the past few days which is also likely contributing to her A-fib with RVR. She is being managed for the following: Sepsis POA: High temperature, pulse, WBC at presentation. Lactate 1.5. RLE cellulitis Acute metabolic encephalopathy-cleared Patient presenting with sepsis secondary to RLE cellulitis status post at least 2 outpatient courses of antibiotic failure. Was confused and agitated at presentation. Per outpatient records she developed what appeared to be a noninfected cut on 05/17 and was given topical bactroban. This got bigger and she received a course of doxycycline from urgent care which upset her stomach. She was then given azithromycin on 06/25 by per PCP. She went to the ER who recommended admission for IV abx but patient refused admission. She also received a course of levofloxacin and was planning to give intravenous Dalvance weekly Follow-up admitting blood culture and right leg wound culture. Started with intravenous daptomycin and which was discontinued on 07/22 and ertapenem 07/21 which is continued. Awaiting ID input and recommendation. Continue with pain management with hydrocodone and Toradol. BuSpar for anxiety. Clinically much better with improvement of the wound and decreasing pain Atrial fibrillation with RVR: History of chronic A-fib, likely tachycardic in the setting of infection, heart rate getting better. Continue home digoxin and Coreg. Continue with Coumadin. Telemetry monitoring. Patient with no chest pain. 07/21 echo with EF of >70%, normal LV systolic function and wall motion, mild concentric LVH. Left atrial size is normal. Acute Kidney Injury: Cr uptrended 1.41 from 0.72, likely prerenal 2/2 borderline hypotension. toradol and enalapril held; coreg dose reduced until hypotension improves. IV albumin for now as pt w/ pulmonary congestion. Pt needs constant cues for po intake of fluid per RN. Pulmonary edema: Patient reporting difficulty breathing, on 3 L oxygen and saturating well, admitting CXR with interval progression of the pulmonary edema and small bilateral pleural effusion. Patient received a dose of IV Lasix at admission, Clinically better Low back rash: Linear and papular rash over the lower back, at admission - reports about the same without progression since last 3 days [employer], denies itching or pain. Does not look infected. Reports receiving Levaquin 7 days prior this rash developed per patient. Stable. follow daily.-Rash has improved Other chronic medical conditions: Anemia: Baseline hemoglobin around 11, will continue to monitor hemoglobin. Iron profile with low iron, vitamin B12 and folate WNL. Will use Venofer in this admission once patient is more stable. HTN, HLD, HFpEF, IBS, gastroparesis, GERD, generalized anxiety disorder: BuSpar. Home meds as able. Small frequent meals due to gastroparesis history. DVT prophylaxis: Patient on Coumadin Full code Admission and Anticipated Discharge Date Admission Date: July 20, 2022 Subjective 07/23/2022 The patient was seen and examined in telemetry unit She has been feeling much better The right leg wound seems to be improving Complains to have pain in the right leg and does have edema in both the legs Review of Systems Review of Systems: All systems reviewed and are unremarkable except as noted below Physical Exam Physical Exam: Sitting on a chair without any acute distress Constitutional: well developed, well nourished, + ill appearing and + obese Eyes: PERRL, conjunctivae normal, anicteric sclerae ENMT: external ear and nose normal, oropharynx normal Neck: trachea midline, no thyromegaly Respiratory: no respiratory distress Auscultation: + diminished lung sounds and + crackles (Minimal bibasilar crackles) Cardiovascular: Rate/Rhythm: regular rate and regular rhythm; not tachycardic Heart Sounds: normal S1 and normal S2; no murmur Extremities: + edema (1+ edema bilaterally) Gastrointestinal (Abdomen): Inspection/Auscultation: normal bowel sounds; abdomen not distended Percussion/Palpation: abdomen soft; abdomen nontender Musculoskeletal: No acute arthritis involving any of the joint Neurologic: normal touch/pain/proprioception and moves all extremities; no focal motor deficits Lymphatic: no cervical or axillary lymphadenopathy Results & Data Results & Data ([facility]) Vital Signs (Past 12 Hours) Vital Signs Temp Pulse Pulse Resp BP Pulse Ox O2 Del Method 07/23/22 12:13 36.8 C 89 19 142/75 H 95 Nasal Cannula 07/23/22 09:13 Room Air 07/23/22 08:36 95 H 07/23/22 08:33 37.1 C 93 H 18 135/57 L 97 Room Air 07/23/22 08:07 85 07/23/22 03:27 97 H 19 120/69 100 Nasal Cannula O2 Flow Rate 07/23/22 12:13 3.0 07/23/22 09:13 07/23/22 08:36 07/23/22 08:33 07/23/22 08:07 07/23/22 03:27 Laboratory Results Short CBC 07/23/22 Range/Units 05:58 WBC 10.49 (4.8-10.8) K/ul Hgb 8.9 L (12.0-16.0) g/dl Hct 27.4 L (37.0-47.0) % Plt Count 159 (130-400) K/uL BMP 07/22/22 07/23/22 15:00 05:58 Sodium 135 L 134 L Potassium 3.6 3.8 Chloride 100 101 Carbon Dioxide 28 26 BUN 30 H 29 H Creatinine 1.59 H 1.04 D Glucose 129 H 113 H Calcium 8.7 9.1 Urine 07/22/22 Range/Units Unknown Urine Color Yellow Urine Appearance Slightly Cloudy (Clear) Urine pH 6.0 (4.5-7.5) Ur Specific [place] 1.015 (1.000-1.030) Urine Protein 1+ H (Negative) Urine Glucose (UA) Negative (Negative) Medications Administered Current Inpatient Medications Hydrocodone Bitart/Acetaminophen (Hydrocodone/Acetamophen 5/325mg Tab) 1 tab PO Q4H PRN PRN Reason: severe pain (7-10) Stop: 08/03/22 14:00 Last Admin: 07/23/22 01:28 Dose: 1 tab Buspirone HCl (Buspirone 7.5 Mg Tab) 7.5 mg PO BID [facility] Stop: 08/20/22 10:59 Last Admin: 07/23/22 08:36 Dose: 7.5 mg Carvedilol (Carvedilol 3.125 Mg Tab) 3.125 mg PO BID [facility] Stop: 08/21/22 08:59 Last Admin: 07/23/22 08:36 Dose: 3.125 mg Collagenase (Collagenase Oint 30 Gm Tube) 1 appln EXT DAILY [facility] Stop: 08/19/22 15:14 Last Admin: 07/23/22 08:36 Dose: 1 appln Diclofenac Sodium (Diclofenac Sod 1% Gel 100 Gm Tube) 2 gm EXT BID PRN; Protocol PRN Reason: Pain Stop: 08/19/22 14:00 Digoxin (Digoxin 0.125 Mg Tab) 0.125 mg PO DAILY [facility] Stop: 08/20/22 08:59 Last Admin: 07/23/22 08:36 Dose: 0.125 mg Enalapril Maleate (Enalapril Maleate 10 Mg Tab) 10 mg PO DAILY [facility]; Protocol Stop: 08/20/22 08:59 Last Admin: 07/21/22 08:46 Dose: 10 mg Ertapenem 1,000 mg/ Syringe 10 mls @ 2 mls/min IV Q24H [facility] Stop: 07/28/22 09:59 Last Admin: 07/23/22 10:14 Dose: 2 mls/min Albumin Human (Albumin 25% 100 Ml) 25 gm in 100 mls @ 50 mls/hr IV Q8H [facility] Stop: 07/25/22 06:29 Last Admin: 07/23/22 13:31 Dose: 50 mls/hr Ketorolac Tromethamine (Ketorolac Tromethamine 15 Mg/Ml Vial) 15 mg IV Q6H PRN PRN Reason: Moderate Pain Stop: 07/26/22 10:49 Last Admin: 07/22/22 00:33 Dose: 15 mg Lorazepam (Lorazepam 0.5 Mg Tab) 0.5 mg PO BID [facility] Stop: 08/19/22 20:59 Last Admin: 07/20/22 20:11 Dose: 0.5 mg Melatonin (Melatonin 3 Mg Tab) 3 mg PO HS PRN PRN Reason: Sleep Stop: 08/19/22 21:34 Last Admin: 07/22/22 22:16 Dose: 3 mg Olanzapine (Olanzapine 10 Mg/2.1 Ml Sdv) 2.5 mg IM Q4H PRN PRN Reason: Anxiety/Agitation Stop: 08/19/22 21:44 Last Admin: 07/21/22 05:56 Dose: 2.5 mg Polyethylene Glycol (Polyethylene (Miralax) 17 Gm Pack) 17 gm PO DAILY PRN PRN Reason: Constipation Stop: 08/19/22 12:51 Warfarin Sodium (Warfarin Sod 6 Mg Tab) 6 mg PO [id number] [facility] Stop: 08/19/22 15:59 Last Admin: 07/20/22 17:54 Dose: 6 mg Warfarin Sodium (Warfarin Sod 4 Mg Tab) 4 mg PO [id number] [facility] Stop: 08/20/22 15:59 Last Admin: 07/22/22 16:41 Dose: 4 mg Zinc Acetate/Diphenhydramine (Diphenhydramine 2%/Zinc 0.1% Cream 28gm Tube) 1 appln EXT TID PRN PRN Reason: Itching Stop: 08/19/22 18:49 Last Admin: 07/23/22 08:37 Dose: 1 appln (1) Sepsis Sepsis acute organ dysfunction status: without acute organ dysfunction Sepsis type: sepsis due to unspecified organism Qualified Code(s): A41.9 - Sepsis, unspecified organism
[2022-07-23] MEDS: WARFARIN SOD 6 MG TAB PO SCH (16:32)
[2022-07-23] MEDS ORDERED: ACETAMINOPHEN 500 MG TAB PO PRN (18:52)
[2022-07-23] MEDS: MELATONIN 3 MG TAB PO PRN (23:16)
[2022-07-24 06:13] LABS: Hematocrit (blood only) 27.8 % (37.0-47.0); Mean Corpuscular Hgb Conc 32.4 g/dL (32.0-36.0); Mean Corpuscular Volume 89.7 fL (80.0-100.0); Mean Platelet Volume 12.4 fL (9.4-12.4); Platelet Count 175 K/uL (130-400); RDW Coefficient of Variation 15.5 % (11.5-14.5)
[2022-07-24 06:30] LABS: BUN Creatinine Ratio 32.8 (10-20); Calcium 9.8 mg/dl (8.5-10.1); Est GFR (African American) 98.4 ml/min; Est GFR (Non-African American) 84.9 ml/min; Potassium 3.8 mmol/L (3.5-5.1)
[2022-07-24 06:39] LABS: Basophils # (auto) 0.03 K/uL (0-0.2); Basophils % (auto) 0.4 %; Eosinophils # (auto) 1.06 K/uL (0-0.50); Eosinophils % (auto) 13.3 %; Immature Granulocytes # (auto) 0.03 K/uL (0.01-0.20); Immature Granulocytes % (auto) 0.4 %; Lymphocytes # (auto) 1.34 K/uL (1.2-3.4); Lymphocytes % (auto) 16.8 %; Monocytes # (auto) 0.47 K/uL (0.11-0.59); Monocytes % (auto) 5.9 %; Neutrophils # (auto) 5.07 K/uL (1.40-6.50); Neutrophils % (auto) 63.2 %; Ovalocytes 1+; Polychromasia 1+
[2022-07-24] MEDS: ALBUMIN 25% 100 mL 25 GM/100 ML VIAL IV SCH ×3 (06:41→21:42)
[2022-07-24 07:36] LABS: INR 4.2 (0.9-1.1); Prothrombin Time 41.4 Seconds (9.0-12.0)
[2022-07-24] MEDS: busPIRone 7.5 MG TAB PO SCH ×2 (08:46→20:41)
[2022-07-24] MEDS: carvediloL 3.125 MG TAB PO SCH ×2 (08:47→20:41)
[2022-07-24] MEDS: DIGOXIN 0.125 MG TAB PO SCH (08:48)
[2022-07-24] MEDS: COLLAGENASE OINT 30 GM TUBE EXT SCH (08:49)
[2022-07-24] MEDS ORDERED: DAPTOmycin 200 MG in SYRINGE 0 ML IV SCH (10:00)
[2022-07-24] MEDS: ERTAPENEM SODIUM 1,000 MG in SYRINGE 0 ML IV SCH (10:38)
--- NOTE | 2022-07-24 13:31 | Hospitalist Progress Note ---
Date of Service July 24, 2022 Assessment & Plan (1) Sepsis: (2) Cellulitis of right leg: (3) Atrial fibrillation with RVR: Plan 77-year-old lady with PMH of pulmonary hypertension, persistent A-fib, diastolic dysfunction with chronic heart failure, irritable bowel syndrome, gastroparesis, herpes labialis, GERD, generalized osteoarthritis, intractable migraine with aura without status migrainous, generalized anxiety disorder, status post mitral valve repair, ventral hernia, adjustment disorder with depressed mood presented to the ED 07/20 with sepsis secondary to RLE infection that has been resistant to at least 2 courses of antibiotic. She was here in the ED on 06/26 and was encouraged to stay for IV antibiotics to treat RLE infection but decided to leave. Per family member patient has been noncompliant with medication for the past few days which is also likely contributing to her A-fib with RVR. She is being managed for the following: Sepsis POA: High temperature, pulse, WBC at presentation. Lactate 1.5. RLE cellulitis with wound Acute metabolic encephalopathy-cleared Patient presenting with sepsis secondary to RLE cellulitis status post at least 2 outpatient courses of antibiotic failure. Was confused and agitated at presentation. Per outpatient records she developed what appeared to be a noninfected cut on 05/17 and was given topical bactroban. This got bigger and she received a course of doxycycline from urgent care which upset her stomach. She was then given azithromycin on 06/25 by per PCP. She went to the ER who recommended admission for IV abx but patient refused admission. She also received a course of levofloxacin and was planning to give intravenous Dalvance weekly Follow-up admitting blood culture and right leg wound culture. Started with intravenous daptomycin and which was discontinued on 07/22 and ertapenem 07/21 which is continued. Continue with pain management with hydrocodone and Toradol. BuSpar for anxiety. Clinically much better with improvement of the wound and decreasing pain Appreciate ID input and recommendation-we will continue intravenous ertapenem today and tomorrow and the patient was discharged with a follow-up to the wound care No need to continue IV daptomycin Atrial fibrillation with RVR: History of chronic A-fib, likely tachycardic in the setting of infection, heart rate getting better. Continue home digoxin and Coreg. Continue with Coumadin. Telemetry monitoring. Patient with no chest pain. 07/21 echo with EF of >70%, normal LV systolic function and wall motion, mild concentric LVH. Left atrial size is normal. Rate is controlled and INR is 4.2 Check INR tomorrow and the Coumadin is on hold now Acute Kidney Injury: Cr uptrended 1.41 from 0.72, likely prerenal 2/2 borderline hypotension. toradol and enalapril held; coreg dose reduced until hypotension improves. IV albumin for now as pt w/ pulmonary congestion. Pt needs constant cues for po intake of fluid per RN. Creatinine has been normalized Pulmonary edema: Patient reporting difficulty breathing, on 3 L oxygen and saturating well, admitting CXR with interval progression of the pulmonary edema and small bilateral pleural effusion. Patient received a dose of IV Lasix at admission, Clinically better Low back rash: Linear and papular rash over the lower back, at admission - reports about the same without progression since last 3 days [employer]ET[employer]IST[employer], denies itching or pain. Does not look infected. Reports receiving Levaquin 7 days prior this rash developed per patient. Stable. follow daily.-Rash has improved Other chronic medical conditions: Anemia: Baseline hemoglobin around 11, will continue to monitor hemoglobin. Iron profile with low iron, vitamin B12 and folate WNL. Will use Venofer in this admission once patient is more stable. HTN, HLD, HFpEF, IBS, gastroparesis, GERD, generalized anxiety disorder: BuSpar. Home meds as able. Small frequent meals due to gastroparesis history. DVT prophylaxis: Patient on Coumadin Full code Discharge tomorrow Admission and Anticipated Discharge Date Admission Date: July 20, 2022 Subjective 07/23/2022 The patient was seen and examined in telemetry unit She has been feeling much better The right leg wound seems to be improving Complains to have pain in the right leg and does have edema in both the legs 07/24/2022 The patient was seen and examined in telemetry unit in presence of the She has been feeling much better and the rash is almost gone Her leg wound and the pain abated to Has been getting physical therapy and likely be discharged tomorrow Review of Systems Review of Systems: All systems reviewed and are unremarkable except as noted below Musculoskeletal: No acute arthritis involving any joint Physical Exam Physical Exam: Sitting on a chair without any acute distress Constitutional: well developed, well nourished and + obese; not ill appearing Eyes: PERRL, conjunctivae normal, anicteric sclerae ENMT: external ear and nose normal, oropharynx normal Neck: trachea midline, no thyromegaly Respiratory: no respiratory distress Auscultation: + diminished lung sounds and + crackles (Minimal bibasilar crackles) Cardiovascular: Rate/Rhythm: regular rate and regular rhythm; not tachycardic Heart Sounds: normal S1 and normal S2; no murmur Extremities: + edema (1+ edema bilaterally) Gastrointestinal (Abdomen): Inspection/Auscultation: normal bowel sounds; abdomen not distended Percussion/Palpation: abdomen soft; abdomen nontender Musculoskeletal: Right leg is more swollen than the left with leg wound over the middle of the leg towards the right side with surrounding inflammation Neurologic: normal touch/pain/proprioception and moves all extremities; no focal motor deficits Psychiatric: A+Ox3, euthymic affect Lymphatic: no cervical or axillary lymphadenopathy Results & Data Results & Data ([facility]) Vital Signs (Past 12 Hours) Vital Signs Temp Pulse Pulse Resp BP Pulse Ox O2 Del Method 07/24/22 11:25 36.8 C 85 14 138/76 95 Room Air 07/24/22 10:34 84 07/24/22 10:29 Nasal Cannula 07/24/22 08:50 94 H 129/63 07/24/22 07:12 36.9 C 87 19 137/75 95 Room Air 07/24/22 03:43 36.6 C 92 H 20 137/81 94 Room Air O2 Flow Rate 07/24/22 11:25 07/24/22 10:34 07/24/22 10:29 2 07/24/22 08:50 07/24/22 07:12 07/24/22 03:43 Laboratory Results Short CBC 07/24/22 Range/Units 05:44 WBC 8.00 (4.8-10.8) K/ul Hgb 9.0 L (12.0-16.0) g/dl Hct 27.8 L (37.0-47.0) % Plt Count 175 (130-400) K/uL BMP 07/24/22 05:44 Sodium 138 Potassium 3.8 Chloride 104 Carbon Dioxide 27 BUN 21 Creatinine 0.64 D Glucose 115 H Calcium 9.8 Medications Administered Current Inpatient Medications Acetaminophen (Acetaminophen 500 Mg Tab) 1,000 mg PO Q8H PRN PRN Reason: Mild Pain Stop: 08/22/22 18:51 Last Admin: 07/23/22 20:14 Dose: 1,000 mg Hydrocodone Bitart/Acetaminophen (Hydrocodone/Acetamophen 5/325mg Tab) 1 tab PO Q4H PRN PRN Reason: severe pain (7-10) Stop: 08/03/22 14:00 Last Admin: 07/23/22 23:16 Dose: 1 tab Buspirone HCl (Buspirone 7.5 Mg Tab) 7.5 mg PO BID [facility] Stop: 08/20/22 10:59 Last Admin: 07/24/22 08:46 Dose: 7.5 mg Carvedilol (Carvedilol 3.125 Mg Tab) 3.125 mg PO BID [facility] Stop: 08/21/22 08:59 Last Admin: 07/24/22 08:47 Dose: 3.125 mg Collagenase (Collagenase Oint 30 Gm Tube) 1 appln EXT DAILY [facility] Stop: 08/19/22 15:14 Last Admin: 07/24/22 08:49 Dose: 1 appln Diclofenac Sodium (Diclofenac Sod 1% Gel 100 Gm Tube) 2 gm EXT BID PRN; Protocol PRN Reason: Pain Stop: 08/19/22 14:00 Digoxin (Digoxin 0.125 Mg Tab) 0.125 mg PO DAILY [facility] Stop: 08/20/22 08:59 Last Admin: 07/24/22 08:48 Dose: 0.125 mg Enalapril Maleate (Enalapril Maleate 10 Mg Tab) 10 mg PO DAILY [facility]; Protocol Stop: 08/20/22 08:59 Last Admin: 07/21/22 08:46 Dose: 10 mg Ertapenem 1,000 mg/ Syringe 10 mls @ 2 mls/min IV Q24H [facility] Stop: 07/28/22 09:59 Last Admin: 07/24/22 10:38 Dose: 2 mls/min Albumin Human (Albumin 25% 100 Ml) 25 gm in 100 mls @ 50 mls/hr IV Q8H [facility] Stop: 07/25/22 06:29 Last Infusion: 07/24/22 08:41 Dose: Infused Ketorolac Tromethamine (Ketorolac Tromethamine 15 Mg/Ml Vial) 15 mg IV Q6H PRN PRN Reason: Moderate Pain Stop: 07/26/22 10:49 Last Admin: 07/22/22 00:33 Dose: 15 mg Lorazepam (Lorazepam 0.5 Mg Tab) 0.5 mg PO BID [facility] Stop: 08/19/22 20:59 Last Admin: 07/20/22 20:11 Dose: 0.5 mg Melatonin (Melatonin 3 Mg Tab) 3 mg PO HS PRN PRN Reason: Sleep Stop: 08/19/22 21:34 Last Admin: 07/23/22 23:16 Dose: 3 mg Olanzapine (Olanzapine 10 Mg/2.1 Ml Sdv) 2.5 mg IM Q4H PRN PRN Reason: Anxiety/Agitation Stop: 08/19/22 21:44 Last Admin: 07/21/22 05:56 Dose: 2.5 mg Polyethylene Glycol (Polyethylene (Miralax) 17 Gm Pack) 17 gm PO DAILY PRN PRN Reason: Constipation Stop: 08/19/22 12:51 Warfarin Sodium (Warfarin Sod 6 Mg Tab) 6 mg PO [id number] [facility] Stop: 08/19/22 15:59 Last Admin: 07/23/22 16:32 Dose: 6 mg Warfarin Sodium (Warfarin Sod 4 Mg Tab) 4 mg PO [id number] [facility] Stop: 08/20/22 15:59 Last Admin: 07/22/22 16:41 Dose: 4 mg Zinc Acetate/Diphenhydramine (Diphenhydramine 2%/Zinc 0.1% Cream 28gm Tube) 1 appln EXT TID PRN PRN Reason: Itching Stop: 08/19/22 18:49 Last Admin: 07/23/22 08:37 Dose: 1 appln (1) Sepsis Sepsis acute organ dysfunction status: without acute organ dysfunction Sepsis type: sepsis due to unspecified organism Qualified Code(s): A41.9 - Sepsis, unspecified organism
[2022-07-24] MEDS: WARFARIN SOD 4 MG TAB PO SCH (16:04)
[2022-07-24] MEDS: HYDROCODONE/ACETAMOPHEN 5/325MG TAB PO PRN ×2 (17:33→21:41)
[2022-07-25] MEDS ORDERED: ACETAMINOPHEN 1,000 MG/100 ML VIAL IV STA (00:18)
[2022-07-25] MEDS: HYDROCODONE/ACETAMOPHEN 5/325MG TAB PO PRN (06:21)
[2022-07-25] MEDS: busPIRone 7.5 MG TAB PO SCH (08:30)
[2022-07-25] MEDS: carvediloL 3.125 MG TAB PO SCH (08:30)
[2022-07-25] MEDS: DIGOXIN 0.125 MG TAB PO SCH (08:30)
[2022-07-25] MEDS: COLLAGENASE OINT 30 GM TUBE EXT SCH (08:31)
[2022-07-25 08:36] LABS: INR 3.7 (0.9-1.1)
[2022-07-25] MEDS ORDERED: FUROSEMIDE 40 MG/4 ML VIAL IV ONE (10:16)
[2022-07-25] MEDS: ERTAPENEM SODIUM 1,000 MG in SYRINGE 0 ML IV SCH (11:00)
--- NOTE | 2022-07-25 14:31 | Hospitalist Progress Note ---
Date of Service July 25, 2022 Assessment & Plan (1) Sepsis: (2) Cellulitis of right leg: (3) Atrial fibrillation with RVR: Plan 77-year-old lady with PMH of pulmonary hypertension, persistent A-fib, diastolic dysfunction with chronic heart failure, irritable bowel syndrome, gastroparesis, herpes labialis, GERD, generalized osteoarthritis, intractable migraine with aura without status migrainous, generalized anxiety disorder, status post mitral valve repair, ventral hernia, adjustment disorder with depressed mood presented to the ED 07/20 with sepsis secondary to RLE infection that has been resistant to at least 2 courses of antibiotic. She was here in the ED on 06/26 and was encouraged to stay for IV antibiotics to treat RLE infection but decided to leave. Per family member patient has been noncompliant with medication for the past few days which is also likely contributing to her A-fib with RVR. She is being managed for the following: Sepsis POA: High temperature, pulse, WBC at presentation. Lactate 1.5. RLE cellulitis with wound Acute metabolic encephalopathy-cleared Patient presenting with sepsis secondary to RLE cellulitis status post at least 2 outpatient courses of antibiotic failure. Was confused and agitated at presentation. Per outpatient records she developed what appeared to be a noninfected cut on 05/17 and was given topical bactroban. This got bigger and she received a course of doxycycline from urgent care which upset her stomach. She was then given azithromycin on 06/25 by per PCP. She went to the ER who recommended admission for IV abx but patient refused admission. She also received a course of levofloxacin and was planning to give intravenous Dalvance weekly Follow-up admitting blood culture and right leg wound culture. Started with intravenous daptomycin and which was discontinued on 07/22 and ertapenem 07/21 which is continued. Continue with pain management with hydrocodone and Toradol. BuSpar for anxiety. Clinically much better with improvement of the wound and decreasing pain Appreciate ID input and recommendation-we will continue intravenous ertapenem today and tomorrow and the patient was discharged with a follow-up to the wound care No need to continue IV daptomycin Antibiotic is done-nonspecific rash is fading away She was strongly advised to keep the legs elevated to decrease leg swelling and improved healing of the wound She will keep appointment with wound clinic as an outpatient Atrial fibrillation with RVR: History of chronic A-fib, likely tachycardic in the setting of infection, heart rate getting better. Continue home digoxin and Coreg. Continue with Coumadin. Telemetry monitoring. Patient with no chest pain. 07/21 echo with EF of >70%, normal LV systolic function and wall motion, mild concentric LVH. Left atrial size is normal. Rate is controlled and INR is 4.2 Check INR tomorrow and the Coumadin is on hold now INR is 3.7 today she was advised to keep close follow-up with the coagulation clinic and not to take Coumadin for today and tomorrow Acute Kidney Injury: Cr uptrended 1.41 from 0.72, likely prerenal 2/2 borderline hypotension. toradol and enalapril held; coreg dose reduced until hypotension improves. IV albumin for now as pt w/ pulmonary congestion. Pt needs constant cues for po intake of fluid per RN. Creatinine has been normalized Pulmonary edema: Patient reporting difficulty breathing, on 3 L oxygen and saturating well, admitting CXR with interval progression of the pulmonary edema and small bilateral pleural effusion. 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 Does not look infected. Reports receiving Levaquin 7 days prior this rash developed per patient. Stable. follow daily.-Rash has improved Other chronic medical conditions: Anemia: Baseline hemoglobin around 11, will continue to monitor hemoglobin. Iron profile with low iron, vitamin B12 and folate WNL. Will use Venofer in this admission once patient is more stable. HTN, HLD, HFpEF, IBS, gastroparesis, GERD, generalized anxiety disorder: BuSpar. Home meds as able. Small frequent meals due to gastroparesis history. DVT prophylaxis: Patient on Coumadin Full code Discharge tomorrow Admission and Anticipated Discharge Date Admission Date: July 20, 2022 Subjective 07/23/2022 The patient was seen and examined in telemetry unit She has been feeling much better The right leg wound seems to be improving Complains to have pain in the right leg and does have edema in both the legs 07/24/2022 The patient was seen and examined in telemetry unit in presence of the She has been feeling much better and the rash is almost gone Her leg wound and the pain abated to Has been getting physical therapy and likely be discharged tomorrow 07/25/2022 The patient was seen and examined in medical floor She does not have any complaint The rash is fading away She will finish the antibiotic and will be discharged home this afternoon Review of Systems Review of Systems: All systems reviewed and are unremarkable except as noted below Musculoskeletal: No acute arthritis involving any joint Physical Exam Physical Exam: Sitting on a chair without any acute distress Constitutional: well developed, well nourished and + obese; not ill appearing Eyes: PERRL, conjunctivae normal, anicteric sclerae ENMT: external ear and nose normal, oropharynx normal Neck: trachea midline, no thyromegaly Respiratory: no respiratory distress Auscultation: + diminished lung sounds and + crackles (Minimal bibasilar crackles) Cardiovascular: Rate/Rhythm: regular rate and regular rhythm; not tachycardic Heart Sounds: normal S1 and normal S2; no murmur Extremities: + edema (1+ edema bilaterally) Gastrointestinal (Abdomen): Inspection/Auscultation: normal bowel sounds; abdomen not distended Percussion/Palpation: abdomen soft; abdomen nontender Musculoskeletal: No acute arthritis involving any joint. Right leg swelling persist but much improved. Will give Lasix as needed Neurologic: normal touch/pain/proprioception and moves all extremities; no focal motor deficits Psychiatric: A+Ox3, euthymic affect Lymphatic: no cervical or axillary lymphadenopathy Results & Data Results & Data ([facility]) Vital Signs (Past 12 Hours) Vital Signs Temp Pulse Resp BP Pulse Ox O2 Del Method 07/25/22 08:30 Room Air 07/25/22 07:07 36.5 C 103 H 16 138/79 95 Room Air Medications Administered Current Inpatient Medications Acetaminophen (Acetaminophen 500 Mg Tab) 1,000 mg PO Q8H PRN PRN Reason: Mild Pain Stop: 08/22/22 18:51 Last Admin: 07/23/22 20:14 Dose: 1,000 mg Hydrocodone Bitart/Acetaminophen (Hydrocodone/Acetamophen 5/325mg Tab) 1 tab PO Q4H PRN PRN Reason: severe pain (7-10) Stop: 08/03/22 14:00 Last Admin: 07/25/22 06:21 Dose: 1 tab Buspirone HCl (Buspirone 7.5 Mg Tab) 7.5 mg PO BID [facility] Stop: 08/20/22 10:59 Last Admin: 07/25/22 08:30 Dose: 7.5 mg Carvedilol (Carvedilol 3.125 Mg Tab) 3.125 mg PO BID [facility] Stop: 08/21/22 08:59 Last Admin: 07/25/22 08:30 Dose: 3.125 mg Collagenase (Collagenase Oint 30 Gm Tube) 1 appln EXT DAILY [facility] Stop: 08/19/22 15:14 Last Admin: 07/25/22 08:31 Dose: 1 appln Diclofenac Sodium (Diclofenac Sod 1% Gel 100 Gm Tube) 2 gm EXT BID PRN; Protocol PRN Reason: Pain Stop: 08/19/22 14:00 Digoxin (Digoxin 0.125 Mg Tab) 0.125 mg PO DAILY [facility] Stop: 08/20/22 08:59 Last Admin: 07/25/22 08:30 Dose: 0.125 mg Enalapril Maleate (Enalapril Maleate 10 Mg Tab) 10 mg PO DAILY [facility]; Protocol Stop: 08/20/22 08:59 Last Admin: 07/21/22 08:46 Dose: 10 mg Ertapenem 1,000 mg/ Syringe 10 mls @ 2 mls/min IV Q24H [facility] Stop: 07/28/22 09:59 Last Admin: 07/25/22 11:00 Dose: 2 mls/min Ketorolac Tromethamine (Ketorolac Tromethamine 15 Mg/Ml Vial) 15 mg IV Q6H PRN PRN Reason: Moderate Pain Stop: 07/26/22 10:49 Last Admin: 07/22/22 00:33 Dose: 15 mg Lorazepam (Lorazepam 0.5 Mg Tab) 0.5 mg PO BID [facility] Stop: 08/19/22 20:59 Last Admin: 07/20/22 20:11 Dose: 0.5 mg Melatonin (Melatonin 3 Mg Tab) 3 mg PO HS PRN PRN Reason: Sleep Stop: 08/19/22 21:34 Last Admin: 07/23/22 23:16 Dose: 3 mg Olanzapine (Olanzapine 10 Mg/2.1 Ml Sdv) 2.5 mg IM Q4H PRN PRN Reason: Anxiety/Agitation Stop: 08/19/22 21:44 Last Admin: 07/21/22 05:56 Dose: 2.5 mg Polyethylene Glycol (Polyethylene (Miralax) 17 Gm Pack) 17 gm PO DAILY PRN PRN Reason: Constipation Stop: 08/19/22 12:51 Warfarin Sodium (Warfarin Sod 6 Mg Tab) 6 mg PO [id number] [facility] Stop: 08/19/22 15:59 Last Admin: 07/23/22 16:32 Dose: 6 mg Warfarin Sodium (Warfarin Sod 4 Mg Tab) 4 mg PO [id number] [facility] Stop: 08/20/22 15:59 Last Admin: 07/24/22 16:04 Dose: Not Given Zinc Acetate/Diphenhydramine (Diphenhydramine 2%/Zinc 0.1% Cream 28gm Tube) 1 appln EXT TID PRN PRN Reason: Itching Stop: 08/19/22 18:49 Last Admin: 07/23/22 08:37 Dose: 1 appln (1) Sepsis Sepsis acute organ dysfunction status: without acute organ dysfunction Sepsis type: sepsis due to unspecified organism Qualified Code(s): A41.9 - Sepsis, unspecified organism
--- NOTE | 2022-07-25 18:50 | Discharge Summary ---
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 She was in the ER on 06/26 and was encouraged to stay for IV antibiotics to treat this, but decided to leave. She has a h/o afib and is presenting today with a septic appearance in afib with RVR. Her heart rate was in the 160s and improved the 120s with 500cc IVF and two doses of Lopressor 5mg IV. She was also unable to lie flat for a CT head and C-spine after a reported fall a few days ago. She was given ativan 0.5mg IV for anxiety related to attempting to lie flat for the CT scan today. The patient is current agitated and in distress, so cannot give a clear history although confirms that she knows where she is. The history was gathered from her daughter and granddaughter, as well as her all who are at bedside with her. They report the patient being seen regularly in the wound care clinic for a RLE wound, which looked "good" on Saturday of this week. There was no s urrounding redness present and no drainage,they report. Yesterday, the patient looked fine and was able to go and get her hair done, etc. She started vomiting overnight and didn't get much sleep. There is also a linear erythematous rash present on her lower back that was there when she arrived per DISTRIBUTION FIELD ENGINEER. Meds were reconciled per external history and outpatient EMR as family was unable to confirm and the patient was screaming out that she was miserable and unable to give a history. She is currently on a small amount of oxygen. DISTRIBUTION FIELD ENGINEER reports that she became hypoxic after receiving Ativan. Patient is easily agitated by the nasal canula and by family members who are assiting her. Admission Exam Per Admitting Provider Physical Exam: CONSTITUTIONAL: WNWD, vitals as above, eyes closed, speech intact but she is saying over and over that she is miserable and not feeling well. EYES: pupils are round and equal bilaterally, normal conjunctivae, no scleral icterus ENT: external ear and nose normal, oral mucous membranes are moist. NECK: trachea midline RESPIRATORY: clear to auscultation bilaterally, no crackles, rales or wheezes, normal respiratory effort CARDIOVASCULAR: irregular rate and irregular rhythm, S1 and 2 heard without murmurs, gallops or rubs, no JVD, no peripheral edema, CHEST: inspection of chest was normal GASTROINTESTINAL: soft, nontender, ND, no guarding MUSCULOSKELETAL: strength 5/5 throughout, head is normocephalic and atraumatic, she is able to sit up at bedside with assistance. SKIN: warm and dry, + rashes on lower back that is raised and erythemaous and linear as if scratched. She has a Stage II ulceration on her right anterior lower extremity that has purulent drainage and there is surrounding erythema including her foot and extending proximal to her knee but not including it. NEUROLOGIC: No facial palsy, no dysarthria. CN 2-12 grossly intact (she wasn't able to perform EOM test), alert and cooperative with prompting, but mostly lying with eyes closed and moaning/yelling out, normal speech, no tremor PSYCHIATRIC: alert cooperative and oriented to person, place. Couldn't state the year. Agitated. Principal Diagnosis Sepsis secondary to right leg wound with cellulitis, atrial fibrillation with RVR, acute kidney injury Discharge Exam Sitting on a chair without any acute distress Constitutional well developed, well nourished and + obese; not ill appearing Eyes PERRL, conjunctivae normal, anicteric sclerae ENMT external ear and nose normal, oropharynx normal Neck trachea midline, no thyromegaly Respiratory no respiratory distress Auscultation: + diminished lung sounds and + crackles (Minimal bibasilar crackles) Cardiovascular Rate/Rhythm: regular rate and regular rhythm; not tachycardic Heart Sounds: normal S1 and normal S2; no murmur Extremities: + edema (1+ edema bilaterally) Gastrointestinal (Abdomen) Inspection/Auscultation: normal bowel sounds; abdomen not distended Percussion/Palpation: abdomen soft; abdomen nontender Neurologic normal touch/pain/proprioception and moves all extremities; no focal motor deficits Psychiatric A+Ox3, euthymic affect Lymphatic no cervical or axillary lymphadenopathy Discharge Data Allergies Allergy/AdvReac Type Severity Reaction Status Date / Time morphine Allergy Severe ANAPHYLAXIS Verified 06/03/22 02:20 Cephalosporins Allergy Intermediate HIVES Verified 07/23/22 08:15 ciprofloxacin Allergy Intermediate fever, rash Verified 06/03/22 02:20 Influenza Virus Vaccines Allergy Intermediate whole body Verified 07/20/22 21:49 rash Iodinated Contrast Media Allergy Intermediate fever, Verified 06/03/22 02:20 diaphoretic latex Allergy Intermediate skin Verified 06/03/22 02:20 blistering meclizine Allergy Intermediate rash Verified 06/03/22 02:20 Penicillins Allergy Intermediate hives Verified 07/23/22 08:15 promethazine Allergy Intermediate CAUSES PT Verified 06/03/22 02:20 TO "BE HYPER" vancomycin Allergy Intermediate fever, rash Verified 06/03/22 02:20 procaine Allergy Mild localized Verified 06/03/22 02:21 swelling tetanus toxoid, adsorbed Allergy Mild pt states Verified 06/03/22 02:20 was told that she could be allergic to Cipro Allergy Unknown fever, rash Verified 01/02/17 15:49 oxycodone [From Percocet] Allergy Hives Verified 06/03/22 02:21 pneumococcal vaccine Allergy Hives Verified 06/03/22 02:22 sumatriptan AdvReac Intermediate 'doesnt Verified 06/03/22 02:20 help' Consultations 07/20/22 11:35 ED Decision to Admit Stat 07/21/22 10:49 Consult Infectious Diseases Routine Ordered Studies 07/20/22 11:00 CT cervical spine wo con Urgent CT head/brain wo con Urgent Hospital Course (1) Sepsis: (2) Cellulitis of right leg: (3) Atrial fibrillation with RVR: Plan 77-year-old lady with PMH of pulmonary hypertension, persistent A-fib, diastolic dysfunction with chronic heart failure, irritable bowel syndrome, gastroparesis, herpes labialis, GERD, generalized osteoarthritis, intractable migraine with aura without status migrainous, generalized anxiety disorder, status post mitral valve repair, ventral hernia, adjustment disorder with depressed mood presented to the ED 07/20 with sepsis secondary to RLE infection that has been resistant to at least 2 courses of antibiotic. She was here in the ED on 06/26 and was encouraged to stay for IV antibiotics to treat RLE infection but decided to leave. Per family member patient has been noncompliant with medication for the past few days which is also likely contributing to her A-fib with RVR. She is being managed for the following: Sepsis POA: High temperature, pulse, WBC at presentation. Lactate 1.5. RLE cellulitis with wound Acute metabolic encephalopathy-cleared Patient presenting with sepsis secondary to RLE cellulitis status post at least 2 outpatient courses of antibiotic failure. Was confused and agitated at presentation. Per outpatient records she developed what appeared to be a noninfected cut on 05/17 and was given topical bactroban. This got bigger and she received a course of doxycycline from urgent care which upset her stomach. She was then given azithromycin on 06/25 by per PCP. She went to the ER who recommended admission for IV abx but patient refused admission. She also received a course of levofloxacin and was planning to give intravenous Dalvance weekly Follow-up admitting blood culture and right leg wound culture. Started with intravenous daptomycin and which was discontinued on 07/22 and ertapenem 07/21 which is continued. Continue with pain management with hydrocodone and Toradol. BuSpar for anxiety. Clinically much better with improvement of the wound and decreasing pain Appreciate ID input and recommendation-we will continue intravenous ertapenem today and tomorrow and the patient was discharged with a follow-up to the wound care No need to continue IV daptomycin Antibiotic is done-nonspecific rash is fading away She was strongly advised to keep the legs elevated to decrease leg swelling and improved healing of the wound She will keep appointment with wound clinic as an outpatient Atrial fibrillation with RVR: History of chronic A-fib, likely tachycardic in the setting of infection, heart rate getting better. Continue home digoxin and Coreg. Continue with Coumadin. Telemetry monitoring. Patient with no chest pain. 07/21 echo with EF of >70%, normal LV systolic function and wall motion, mild concentric LVH. Left atrial size is normal. Rate is controlled and INR is 4.2 Check INR tomorrow and the Coumadin is on hold now INR is 3.7 today she was advised to keep close follow-up with the coagulation clinic and not to take Coumadin for today and tomorrow Acute Kidney Injury: Cr uptrended 1.41 from 0.72, likely prerenal 2/2 borderline hypotension. toradol and enalapril held; coreg dose reduced until hypotension improves. IV albumin for now as pt w/ pulmonary congestion. Pt needs constant cues for po intake of fluid per RN. Creatinine has been normalized Pulmonary edema: Patient reporting difficulty breathing, on 3 L oxygen and saturating well, admitting CXR with interval progression of the pulmonary edema and small bilateral pleural effusion. Patient received a dose of IV Lasix at admission, Clinically better Will give Lasix 20 mg for a day or 2 if there is increase in weight 2 to 3 pounds in 1 week Low back rash: Linear and papular rash over the lower back, at admission - reports about the same without progression since last 3 days SCOUT SNIPER, denies itching or pain. Does not look infected. Reports receiving Levaquin 7 days prior this rash developed per patient. Stable. follow daily.-Rash has improved Other chronic medical conditions: Anemia: Baseline hemoglobin around 11, will continue to monitor hemoglobin. Iron profile with low iron, vitamin B12 and folate WNL. Will use Venofer in this admission once patient is more stable. HTN, HLD, HFpEF, IBS, gastroparesis, GERD, generalized anxiety disorder: BuSpar. Home meds as able. Small frequent meals due to gastroparesis history. DVT prophylaxis: Patient on Coumadin Full code Discharge tomorrow Total Time Total Time Spent Total Time Spent (In Minutes): 35 minutes Discharge Plan Discharge Items Patient Disposition: Home - Self-Care Reason For Visit: AFIB WITH RVR, SEPSIS Discharge Diagnosis: Sepsis secondary to right leg wound with cellulitis, atrial fibrillation with RVR, acute kidney injury Condition on Discharge: Good Activity: Resume your previous activity Non-emergency contact: Primary Care Provider Call non-emergency contact if: you have any medication questions and your symptoms worsen Follow-up/Referrals: Tank Bermudez MD [Primary Care Provider] - (Date & Time 08/01/2022 3:00 PM Provider Tank Bermudez MD Department Family [facility] ) Diet: Heart Healthy Addtl Attending Provider Instructions: Please take precautions to avoid falls You are to keep your wound clean and dry and have regular follow-up with the wound clinic Please take the medications as advised Keep appointments with your healthcare provider Do not take any coumadin today or tomorrow and resume the usual dose from day after tomorrow. Have regular follow up with the Coagulation clinic Pending Studies at Discharge: No Stand-Alone Forms: My Close, Smoking Cessation Medications and DC Order Prescriptions: New enalapril maleate 10 mg Tablet 10 mg PO DAILY 30 Days Qty: 30 0RF carvedilol 3.125 mg Tablet 3.125 mg PO BID 30 Days Qty: 60 0RF Anti-Itch(diphenhyd) with Zinc 2-0.1 % Cream 1 applic EXT TID PRN (Reason: itching) Qty: 30 0RF buspirone 7.5 mg Tablet 7.5 mg PO BID 30 Days Qty: 60 0RF furosemide [Lasix] 20 mg tablet 20 mg PO UD PRN (Reason: edema) Qty: 30 0RF Rx Instructions: Take 1 po for a day or two if you gain 2-3 pounds in 1 week Continued triamcinolone acetonide 0.1 % Cream 1 applic TOPICAL BID lorazepam 0.5 mg Tablet 0.5 mg PO BID albuterol sulfate [ProAir HFA] 90 mcg/actuation Hfa Aerosol Inhaler 2 puff INHALATION Q6H PRN (Reason: Shortness Of Breath Or Wheezing) diclofenac sodium 1 % Gel 2 g TOPICAL BID PRN (Reason: Pain) Rx Instructions: Applies to hands hydrocodone-acetaminophen 5-325 mg tablet 1 tab PO Q4H PRN (Reason: Pain) ondansetron HCl 8 mg tablet 8 mg PO TID PRN (Reason: Nausea) warfarin [Jantoven] 2 mg tablet 6 mg PO MOWEFR@0900 digoxin 125 mcg (0.125 mg) tablet 125 mcg PO DAILY warfarin 4 mg Tablet 4 mg PO SUTUTHSA@0900 Discontinued carvedilol 12.5 mg Tablet 12.5 mg PO BID ramipril 2.5 mg Capsule 2.5 mg PO DAILY Discharge Orders: Discharge Order (Routine); Ordered 07/25/22 Ordered By: Maximino Isbell/Other Patient Handouts: What to Know When TakingWarfarin, Cellulitis Dc, AFib Admission Data Admit Date/Time: 07/20/22 11:51 Attending Provider: Maximino Rosas Admit Provider: Liza Benedict Primary Care Provider: Tank Bermudez Other Providers: Arin Clements ; [facility] ; Liza Benedict ; Noe Combs ; Smita Conner ; Calvin Flaherty I. ; Roman Damon II ; Miya Hodges ; Saman Fernandes ; Bello Clemens ; Gilmar Kunz Other Interventions: Discharge Summary Assessment (RN) Last Done: 07/25/22 14:56
== END 2022-07-25 16:45 | disposition home health service (06) | DRG 871 ==
LOC: ED 09:16 → SUATTDRO 11:51 → 2E 11:51 → 3N 07-24 16:27